=== PATIENT | female | born 1985 | race African-American/Black ===

== ENCOUNTER 2024-12-15 20:39 | Emergency (ER) | payer BC, SELFPAY ==
--- NOTE | ~2024-12-15 | US_ITS ---
EXAMINATION: US OB <= 14 weeks fetus INDICATION: preg, bleeding, r/o ectopic TECHNIQUE: Sonography of the pelvis was performed by transabdominal technique. Patient declined endov aginal examination. COMPARISON: None. RESULT: Exam limited by transabdominal technique and bowel gas. Uterus: 10.5 x 6.3 x 7.0 cm. Anteverted. Intrauterine gestational sac: Possible gestational sac, low in the cervix. Mean Sac Diameter: 1.7 c m, corresponding gestational age 6 week 6 days. Yolk sac: Not visualized. Embryo: Not seen. Right ovary: 4.0 x 3.3 x 3.4 cm. Vascular flow is present. 2.1 cm cyst. Left ovary: 3.0 x 2.3 x 2.1 cm. Vascular flow is present. 3.6 cm ovarian lesion, likely cyst, part ially obscured. Pelvis free fluid: None. IMPRESSION: Limited examination as detailed above. Possible gestational sac low in the cervix. No pole identified. Estimated Gestational Age: 6 weeks, 6 days by mean gestational sac diameter. BELLO by ultrasound 2025. Recommend close clinical and sonographic follow-up. Reviewed, dictated and finalized at location K. IMPRESSION: Limited examination as detailed above. Possible gestational sac low in the cervix. No pole identified. Estimated Gestational Age: 6 weeks, 6 days by mean gestational sac diameter. E DD by ultrasound 08/04/2025. Recommend close clinical and sonographic follow-up.
[2024-12-15 20:44] VITALS: BP 142/80; PULSE 83; RESP 16; TEMP 36.7; O2SAT 100
[2024-12-15 21:59] LABS: Hematocrit 40.5 % (37.0-47.0); Hemoglobin 13.0 g/dL (12.0-15.0); Immature Granulocyte Percent A 0.2 % (0-0.5); Lymphocytes Absolute Auto 2.15 K/mm3 (0.9-3.2); Mean Corpuscular HGB Conc 32.1 g/dl (32-36); Mean Corpuscular Hemoglobin 27.7 pg (26-34); Mean Corpuscular Volume 86.2 fl (80-100); Nucleated Red Blood Cells Absolute Auto 0.000 K/mm3 (0.0-0.012); Nucleated Red Blood Cells Perc 0.0 % (0.0-0.2); Platelet Count Result 282 k/mm3 (150-375); Red Blood Count 4.70 M/mm3 (4.2-5.4); White Blood Count 8.3 K/mm3 (4.5-10.0)
[2024-12-15 22:10] LABS: INR 1.0; Prothrombin Time 13.0 Seconds (11.1-14.7)
[2024-12-15 22:11] LABS: Partial Thromboplastin Time 27.6 Seconds (22.3-36.8)
[2024-12-15 22:14] LABS: Alanine Aminotransferase 20 U/L (6-35); Albumin Level 4.6 g/dL (3.5-5.1); Alkaline Phosphatase 58 U/L (38-126); Anion Gap 10 mmol/L (4-12); Aspartate Amino Transferase 26 U/L (14-36); Bilirubin,Total 0.3 mg/dL (0.2-1.3); Blood Urea Nitrogen 11 mg/dL (7-17); Calcium 9.6 mg/dL (8.4-10.2); Carbon Dioxide 20 mmol/L (22-30); Chloride 104 mmol/L (98-107); Estimated CRCL calculation 130 ml/min; Estimated Glomerular Filt Rate > 60; Glucose 126 mg/dL (65-110); Potassium 3.7 mmol/L (3.4-5.0); Sodium 134 mmol/L (137-145); Total Protein 8.7 g/dL (6.3-8.2)
--- OUTSIDE RECORDS SUMMARY | 2024-12-15 22:22 | XMS_ITS | Clinical Summary ---
Author Organization [facility] al Address [address] [place] [address] Care Team Providers Care Talent Acquisition Operations Manager Name Role Phone Francisca Monsivais NP Primary Care Provider [phone] Allergies No known active allergies Medications famotidine (PEPCID) 20 mg tablet Take 1 tablet (20 mg total) by mouth 2 (two) times a day 60 tablet 4 Active calcium carbonate (TUMS) 500 mg (200 mg elemental calcium) chewable tablet Take 1 tablet/chew tab (500 mg total) by mouth 3 (three) times a day as needed for indigestion or heartburn 60 tablet 4 Active Social History Tobacco Use Types Packs/Day Years Used Date Smoking Tobacco: Never Assessed Personal Safety Answer Date Recorded Have you ever been in or are you currently in a harmful physical or emotional relationship or is someone making you feel afraid or unsafe? 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 Gender Identity Not on file Sexual Orientation Not on file Obstetrics History Last Filed Vital Signs Vital Sign Reading Time Taken Comments Blood Pressure 112/63 11/15/2023 9:30 AM CDT Pulse 63 11/15/2023 9:30 AM CDT Temperature 36.8 C (98.3 F) 11/15/2023 5:16 AM CDT Respiratory Rate 16 11/15/2023 9:30 AM CDT Oxygen Saturation 98% 11/15/2023 9:30 AM CDT Inhaled Oxygen Concentration - - Weight 99.3 kg (219 lb) 11/15/2023 5:16 AM CDT Height 167.6 cm (5' 6) 11/15/2023 5:16 AM CDT Body Mass Index 35.35 11/15/2023 5:16 AM CDT Plan of Treatment Health Maintenance Due Date Last Done Comments Cervical Cancer Screening 1987 Depression Screening 1987 Hepatitis C Screening 1987 DTaP/Tdap/Td Vaccine (5 - Tdap) 1998 02/14/1993, 12/15/1992, 1987, Additional history exists Varicella Vaccines (1 of 2 - 13+ 2-dose series) 2000 Regular Well Visit/Exam 18-64 2005 HPV Vaccines (1 - 3-dose SCDM series) 2014 Influenza Vaccine (#1) 2025 Hepatitis B Screening Completed 02/20/2000 , 04/22/1999, 03/19/1999 Pneumococcal vaccine <65 Aged Out No longer eligible based on patient's age to complete this topic Insurance [employer] OOS [employer] OOS Member Subscriber Plan / Payer (Ef fective 2022-Present) Name:Sherrill Valencia Relation to Subscriber:Self Name:Sherrill Valencia Payer ID:[id number] (NAIC) Type: ALLIANCE Address: [facility] [id number] [place] [id number] Care Teams Talent Acquisition Operations Manager Relationship Specialty Start Date End Date Francisca Monsivais NP [address] [place] [id number] PCP - General Steward/Stewardess Tourist Class 11/15/23
--- OUTSIDE RECORDS SUMMARY | 2024-12-15 22:22 | XMS_ITS | Clinical Summary ---
Author Organization [facility] Address [address] [facility] [place] [address] Care Team Providers Care Fleet Technician Name Role Phone Francisca Monsivais Primary Care Provider [phone] Source Comments [facility],non-owned Affiliates and Associated Physician Practices is amultiple site organization consisting of ambulatory clinics and hospital sitesin [place], [place], [place] and [place]. This disclosure is being madepursuant to the Care Everywhere program and may not contain all information available regarding this patient. Last updated [facility] Allergies No known active allergies Medications * Be aware that medications may not be up to date on this document. Alwaysverify current medications with the patient. Vit-Fe Fumarate-FA ( vitamin) 28-0.8 MG tablet Take 1 (one) tablet by mouth once daily Active metoclopramide (Reglan) 10 MG tablet Take 1 (one) tablet by mouth every 6 hours for 90 days 120 tablet 2 4 Active scopolamine (Transderm-Scop ) 1 MG patchIndication s:Nausea and vomiting during (HCC) Apply 1 (one) patch to skin every 3 days for 90 days 10 patch 2 4 Active Additional Information Patient not taking.Reason: Other, Informant: Patient, Reported on 02/23/2024 ondansetron, disintegrating, (Zofran ODT) 4 MG tablet Take 1 (one) tablet by mouth every 6 hours for 90 days Allow tablet to dissolve on the tongue 120 tablet 2 4 Active multivitamins plus minerals chew tablet Take 1 (one) tablet by mouth daily with food Active ibuprofen (Motrin) 600 MG tablet Take 1 (one) tablet by mouth every 6 hours as needed for Pain 30 tablet Active acetaminophen (Tylenol) 500 MG capsule Take 2 (two) capsules by mouth every 6 hours as needed for Fever or Pain 60 capsule Active docusate sodium (Colace) 100 MG capsule Take 1 (one) capsule by mouth once daily 60 capsule Active Additional Information Patient not taking.Reason: Other, Reported on 07/18/2024 polyethylene glycol 3350 (MiraLax) 17 GM/SCOOP powder Take 17 (seventeen) g by mouth once daily 238 g 1 Active Additional Information Patient not taking.Reason: Other, Reported on 07/18/2024 ferrous sulfate 325 (65 FE) MG tablet Take 1 (one) tablet by mouth once daily 30 tablet 2 Active Active Problems Patient Care Coordination No te Formatting of this note migh t be different from the original. [employer] form completed. Diapers given. 03/22/2024, 04/19/24; 05/25/24, 07/18/24PP Problem Noted Date Diagnosed Date Encounter for induction of labor 06/09/2024 Fall, initial encounter 05/26/2024 Iron deficiency anemia juancarlos luke to inadequate dietary iron intake 05/11/2024 Encounter for supervision of normal first in third trimester 04/05/2024 Nausea and vomiting during 11/23/2023 Immunizations Immunization Administration Dates Next Due MMR 06/11/2024() TDAP (7yrs+) 06/11/2024() Social History Tobacco Use Types Packs/Day Years Used Date Smoking Tobacco: Never Smokeless Tobacco: Never Tobacco Cessation:Counseling Given: Not Answered Alcohol Use Standard Drinks/Week Comments Not Currently 0 (1 standard drink = 0.6 oz pur e alcohol) Overall Financial Resource Strain (CARDIA) Answe r Date Recorded How hard is it for you to pa y for the very basics like food, housing, medical care, and heating? Not very hard 07/18/2024 [facility] - Occupational Stress Questionnaire Answer Date Recorded Do you feel stress - tense, restless, nervous, or anxious, or unable to sleep at night because your mind is troubled all the time - these days? Only a little 07/18/2024 Hunger Vital Sign Answer Date Recorded Within the past 12 months, y ou worried that your food would run out before you got the money to buy more. Never true 07/19/19 25 Within the past 12 months, t he food you bought just didn't last and you didn't have money to get more. Never true 07/18/2024 PRAPARE - Transportation Answer Date Re corded In the past 12 months, has l ack of transportation kept you from medical appointments or from getting medications? No 08/2024 In the past 12 months, has l ack of transportation kept you from meetings, work, or from getting things needed for daily living? No 07/18/2024 Housing Stability Vital Sign Answer Ramon e Recorded In the last 12 months, was t here a time when you were not able to pay the mortgage or rent on time? No 02/23/2024 In the last 12 months, how many places have you lived? 2 02/23/2024 In the last 12 months, was t here a time when you did not have a steady place to sleep or slept in a custodial (including now)? No 02/23/2024 Pelham Depression Scale Answer Date Recorded Pelham Depression Scale Total 2 07/18/2024 The thought of harming myself has occurred to me . Never 07/18/2024 Housing Stability Vital Sign Answer Ramon e Recorded In the last 12 months, was t here a time when you were not able to pay the mortgage or rent on time? No 07/18/2024 In the past 12 months, how m any times have you moved where you were living? 1 07/18/2024 At any time in the past 12 m [facility], were you homeless or living in a custodial (including now)? No 07/18/2024 Comments No Sex and Gender Information Value Date Recorded Sex Assigned at Not on file Legal Sex Female 12:51 PM CDT Gender Identity Not on file Sexual Orientation Not on file Last Filed Vital Signs Vital Sign Reading Time Taken Comments Blood Pressure 136/87 07/18/2024 9:46 AM INTELLIGENCE OFFICER BASIC Pulse 74 07/18/2024 9:46 AM INTELLIGENCE OFFICER BASIC Temperature 36.7 C (98 F) 06/11/2024 8:30 AM INTELLIGENCE OFFICER BASIC Respiratory Rate 18 06/11/2024 8:30 AM INTELLIGENCE OFFICER BASIC Oxygen Saturation 100% 06/11/2024 8:30 AM INTELLIGENCE OFFICER BASIC Inhaled Oxygen Concentration - - Weight 99.3 kg (219 lb) 07/18/2024 9:46 AM INTELLIGENCE OFFICER BASIC Height 167.6 cm (5' 5.98) 06/10/2024 12:13 AM C Body Mass Index 35.36 06/10/2024 12:13 AM INTELLIGENCE OFFICER BASIC Plan of Treatment Upcoming Encounters Date Type Department Care Team (Late st Contact Info) Description 01/16/2025 10:30 AM CDT Appointment [facility]/ EVALUATION UNIT [address] [facility] [address] [facility] [place] [address] Health Maintenance Due Date Last Done Comments DTAP/TDAP/TD VACCINES (1 - Tdap) 2006 HEPATITIS B VACCINE (1 of 3 - 19+ 3-dose series) 2006 PAP SMEAR 2008 HPV VACCINE (1 - 3-dose SCDM series) 2014 COVID-19 VACCINE (1 - 2023-2 5 season) 2024 INFLUENZA VACCINE (#1) 2025 ZOSTER VACCINE (1 of 2) 2037 HEPATITIS C SCREENING Completed 11/23/2023 HIV SCREENING Completed 04/05/2024 DEPRESSION SCREENING Completed 07/18/2024 HIB VACCINE Aged Out No longer eligi ble based on patient's age to complete this topic MENINGOCOCCAL (Group B) VACC INE SHARED DECISION-MAKING Aged Out No longer eligibl e based on patient's age to complete this topic MENINGOCOCCAL GROUPS A/C/Y/W VACCINE Aged Out No longer eligible b ased on patient's age to complete this topic PNEUMOCOCCAL VACCINE Aged Out No long er eligible based on patient's age to complete this topic Procedures Procedure Name Priority Date/Time Associated Diagnosis Comments HIV-1 HIV-2 ANTIBODY + HIV P24 AG PANEL Routine 04/05/2024 10:46 AM INTELLIGENCE OFFICER BASIC Encounter for supervision of normal first in third trimester HEPATITIS SCREEN ACUTE STAT 11/23/2023 4:09 PM CDT Nausea and vomiting during from Last 3 Months or Most Recently Relevant to Health Maintenance Results * HIV-1 HIV-2 ANTIBODY + HIV P24 AG PANEL (04/05/2024 10:46 AM INTELLIGENCE OFFICER BASIC) Pathologist [facility] HIV1/2 Ab + P24 Ag Non Reactive Non Reactive 04/05/2024 1:18 PM INTELLIGENCE OFFICER BASIC [facility] Blood BLOOD SPECIMEN / Unknown Venipuncture / Unknown 04/05/2024 10:46 AM INTELLIGENCE OFFICER BASIC 04/05/2024 12:02 PM INTELLIGENCE OFFICER BASIC Narrative [facility] - 04/05/2024 1:18 PM INTELLIGENCE OFFICER BASIC No Laboratory evidence of HIV infection. us Shira Andres APRN-[facility] - CHEMISTRY ORDE RABPEPPER Final Result Performing Organization Address [facility] Co de Phone Number [facility] [address] [place], [place] [id number] * HEPATITIS SCREEN ACUTE (11/23/2023 4:09 PM CDT) Pathologist [facility] HAV Antibody IgM Non Reactive Non Reactive 11/23/2023 5:02 PM CDT [facility] HBsAg Non Reactive Non Reactive 11/23/2023 5:02 PM CDT [facility] HBc Antibody IgM Non Reactive Non Reactive 11/23/2023 5:02 PM CDT [facility] HCV Antibody Screen Non Reactive Non Reactive 11/23/2023 5:02 PM CDT [facility] Blood BLOOD SPECIMEN / Unknown Venipuncture / Unknown 11/23/2023 4:09 PM CDT 11/23/2023 4:17 PM CDT Narrative [facility] - 11/23/2023 5:02 PM CDT Non Reactive - Antibodies to Hepatitis C virus (HCV) were not detected, result does not exclude early acute HCV infection. us Jordana Joe APRN-[facility] - CHEMISTRY ORDER SHEA Final Result Performing Organization Address [facility] Co de Phone Number [facility] [address] [place] [phone] from Last 3 Months or Most Recently Relevant to Health Maintenance Insurance [id number][NOTE 3] Advance Directives * Full Code (Latest Code Status on File) Date Activated Date Inactivated Comments 06/09/2024 2:53 PM 06/11/2024 2:47 PM * Full Code Date Activated Date Inactivated Comments 11/23/2023 3:19 PM 11/24/2023 5:33 PM * Full Code Date Activated Date Inactivated Comments 11/23/2023 1:02 PM 11/23/2023 3:19 PM Care Teams Fleet Technician Relationship Specialty Start Date End Date Francisca Monsivais [address] [place] [address] PCP - General 11/23/23
--- OUTSIDE RECORDS SUMMARY | 2024-12-15 22:22 | XMS_ITS | Referral Summary ---
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
[2024-12-15 22:28] LABS: Beta HCG Quantitative 6839.60 mIU/ML
--- NOTE | 2024-12-15 23:39 | ED.PREGNANCY ---
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 Patient is in approximately 9-10 weeks gestation. Reports LNMP was October 07, 2024. Did have a positive test last week. She has not seen her OBGYN yet for this . Typically follows with a provider in [place], [place]. Reports she began having vaginal bleeding tonight. Reports it was mild at 1st, did become slightly heavier. She reports some clots. Denies significant abdominal cramping. Denies nausea, vomiting, fevers. Denies dizziness, lightheadedness. Review of Systems Review of Systems: All systems reviewed & are unremarkable except as noted in HPI. All systems reviewed & are unremarkable except as noted in HPI and below Exam Narrative: GENERAL: Well appearing, well-nourished, non-toxic, in no acute distress. HEAD: Normocephalic, atraumatic. RESPIRATORY: Airway patent, respirations nonlabored. CARDIOVASCULAR: Regular rate and rhythm without murmurs, rubs, or gallops. MUSCULOSKELETAL: Moves all extremities. No gross deformities. SKIN: Warm, dry, normal color. NEURO: A&O X3. Speech clear. No ataxic movements. PSYCHIATRIC: Appropriate mood and affect. Normal interaction. Course Vital Signs Vital signs: Vital Signs Temperature 98.1 F 12/15/24 20:44 Pulse Rate 83 12/15/24 20:44 Respiratory Rate 16 12/15/24 20:44 Blood Pressure 142/80 H 12/15/24 20:44 Pulse Oximetry 100 12/15/24 20:44 Oxygen Delivery Room Air 12/15/24 20:44 Temperature 98.1 F 12/15/24 20:44 Pulse Rate 83 12/15/24 20:44 Respiratory Rate 16 12/15/24 20:44 Blood Pressure 142/80 H 12/15/24 20:44 Pulse Oximetry 100 12/15/24 20:44 Oxygen Delivery Room Air 12/15/24 20:44 MDM - OB/Uterine Contractions MDM Narrative Medical decision making narrative: Patient presented to ED with vaginal bleeding, currently 9-10 weeks gestation. . Vital signs are stable upon arrival. Patient is in no acute distress. Laboratory studies obtained without leukocytosis or anemia. Beta hCG today is just under 7000. No records to compare to. Blood type is B positive, no indication for RhoGAM. ultrasound was obtained transabdominally. Patient declined transvaginal US exam. This is showing possible gestational sac low in the cervix without evidence of pole. Measuring approximately 6 weeks 6 days. Discussed lab and imaging findings with patient. Unfortunately findings appear consistent with spontaneous miscarriage. Discussed this with patient. She politely declined pelvic exam in the ED. discussed expected management, advised to continue to monitor bleeding closely. Discussed having repeat hormone level obtain on Wednesday. Will place outpatient order for this. Advised patient to contact OBGYN 1st thing Wednesday morning. I did discuss case with Dr. Bone, OBGYN on-call, agrees with plan. Patient given very strict return precautions, discussed worrisome signs of bleeding. Patient voiced understanding. Feels comfortable going home. Discharged in stable condition. Medical Records Attestation: I reviewed the patient's medical records. Lab Data Attestation: I reviewed the patient's lab results. 12/15/24 21:51 12/15/24 21:51 Labs: Lab Results 12/15/24 Range/Units 21:51 WBC 8.3 (4.5-10.0) K/mm3 RBC 4.70 (4.2-5.4) M/mm3 Hgb 13.0 (12.0-15.0) g/dL Hct 40.5 (37.0-47.0) % MCV 86.2 (80-100) fl MCH 27.7 (26-34) pg MCHC 32.1 (32-36) g/dl RDW 13.8 (11.5-14.5) % Plt Count 282 (150-375) k/mm3 MPV 11.0 H (7.4-10.4) fl Immature Gran % (Auto) 0.2 (0-0.5) % Neut % (Auto) 65.9 (45.5-73.1) % Lymph % (Auto) 25.9 (18.3-44.2) % [place] % (Auto) 5.5 (2.6-8.5) % Eos % (Auto) 1.8 (0-4.4) % Baso % (Auto) 0.7 (0.2-1.2) % Lymph # (Auto) 2.15 (0.9-3.2) K/mm3 [place] # (Auto) 0.5 (0.1-0.6) K/mm3 Eos # (Auto) 0.2 (0-0.3) K/mm3 Baso # (Auto) 0.1 (0.0-0.1) K/mm3 Abs Immat Gran (auto) 0.02 (0.00-0.031) K/mm3 Absolute Neuts (auto) 5.5 (1.3-6.7) K/mm3 Absolute Nucleated RBC 0.000 (0.0-0.012) K/mm3 Nucleated RBC % 0.0 (0.0-0.2) % PT 13.0 (11.1-14.7) Seconds INR 1.0 APTT 27.6 (22.3-36.8) Seconds Sodium 134 L (137-145) mmol/L Potassium 3.7 (3.4-5.0) mmol/L Chloride 104 (98-107) mmol/L Carbon Dioxide 20 L (22-30) mmol/L Anion Gap 10 (4-12) mmol/L BUN 11 (7-17) mg/dL Creatinine 0.61 L (0.7-1.0) mg/dL Estim Creat Clear Calc 130 ml/min Estimated GFR > 60 (59 - ) Glucose 126 H (65-110) mg/dL Calcium 9.6 (8.4-10.2) mg/dL Total Bilirubin 0.3 (0.2-1.3) mg/dL AST 26 (14-36) U/L ALT 20 (6-35) U/L Alkaline Phosphatase 58 (38-126) U/L Total Protein 8.7 H (6.3-8.2) g/dL Albumin 4.6 (3.5-5.1) g/dL Beta HCG, Quant 6839.60 mIU/ML Blood Type B Positive Antibody Screen Negative Screen Not Reportable Baby's Blood Type Not Reportable Baby's CANDI Not Reportable Doses of RhIg Required 0 Imaging Data Attestation: I personally reviewed and interpreted this imaging study as follows: Radiologist's impression: ITS Impressions Ultrasound 08/01/25 23:01 IMPRESSION: Limited examination as detailed above. Possible gestational sac low in the cervix. No pole identified. Estimated Gestational Age: 6 weeks, 6 days by mean gestational sac diameter. BELLO by ultrasound 08/04/2025. Recommend close clinical and sonographic follow-up. Discharge Plan Discharge Clinical Impression: Spontaneous miscarriage Patient Disposition: Home Condition: Stable Instructions: Antibiotic Form, Miscarriage (ED), Abnormal (Dysfunctional) Uterine Bleeding (ED) Additional Instructions: Contact OBGYN office on Wednesday to make follow-up appointment for further evaluation. You may follow-up with our OBGYN here if needed. Obtain repeat beta-hCG on Wednesday. Take lab order sheet with you to outpatient lab. Continue to monitor bleeding. You may use Tylenol/ibuprofen if needed for abdominal cramping. Return to the ED if you experience worsening or severe bleeding (saturating through a pad per hour for at least 3 consecutive hours), severe pain or cramping, feeling dizzy or lightheaded, passing out, unable to keep down food or drink, or any other symptoms of concern. Patient Language: Malay Other Ambulatory Orders: Beta HCG Quantitative (Routine) Timeframe: 20241218 Location: Determined by Patient Ordered By: Joanne Graves Follow-up/Referrals: Hayley Bone MD [Physician] - (OBGYN) UNKNOWN,DOCTOR [Primary Care Provider] - Time of Disposition: 23:53
== END 2024-12-16 00:08 | disposition home or self-care (01) ==
PROVIDERS: Emergency Provider Physician Assistant
DX: O03.9 Complete or unspecified spontaneous abortion without complication (principal)
CPT/HCPCS: 36415; 76801; 80053; 84702; 85025; 85461; 85610; 85730; 86850; 86900; 86901; 99284

== ENCOUNTER 2024-12-18 11:39 | Outpatient (CLI) | payer BC, SELFPAY ==
--- OUTSIDE RECORDS SUMMARY | 2024-12-18 12:02 | XMS_ITS | Referral Summary ---
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
--- OUTSIDE RECORDS SUMMARY | 2024-12-18 12:02 | XMS_ITS | Clinical Summary ---
Author Organization [facility] Address [address] [place] [address] Care Team Providers Care Learning Disabilities Teacher Name Role Phone Francisca Monsivais Primary Care Provider [phone] [facility],non-owned Affiliates and Associated Physician Practices is amultiple site organization consisting of ambulatory clinics and hospital sitesin [place], [place], [place] and [place]. This disclosure is being madepursuant to the Care Everywhere program and may not contain all information available regarding this patient. Last updated 18.[employer] [facility] Allergies No known active allergies Medications * [...] migh t be different from the original. [employer] form completed. Diapers given. 03/22/2024, [...] care, and heating? Not very hard 07/18/2024 [facility] - Occupational Stress Questionnaire Answer Date Recorded [...] place to sleep or slept in a usp (including now)? No 02/23/2024 [place] Depression Scale Answer Date Recorded [place] Depression Scale Total 2 07/18/2024 The thought [...] any time in the past 12 m [facility], were you homeless or living in a usp (including now)? No 07/18/2024 Comments No Sex and Gender Information Value Date Recorded Sex Assigned at Not on file Legal Sex Female 12:51 PM CDT Gender Identity Not on file Sexual Orientation Not on file Last Filed Vital Signs Vital Sign Reading Time Taken Comments Blood Pressure 136/87 07/18/2024 9:46 AM DATA INTEGRATION ANALYST Pulse 74 07/18/2024 9:46 AM DATA INTEGRATION ANALYST Temperature 36.7 C (98 F) 06/11/2024 8:30 AM DATA INTEGRATION ANALYST Respiratory Rate 18 06/11/2024 8:30 AM DATA INTEGRATION ANALYST Oxygen Saturation 100% 06/11/2024 8:30 AM DATA INTEGRATION ANALYST Inhaled Oxygen Concentration - - Weight 99.3 kg (219 lb) 07/18/2024 9:46 AM DATA INTEGRATION ANALYST Height 167.6 cm (5' 5.98) 06/10/2024 12:13 AM C Body Mass Index 35.36 06/10/2024 12:13 AM DATA INTEGRATION ANALYST Plan of Treatment Upcoming Encounters Date Type Department Care Team (Late st Contact Info) Description 01/16/2025 10:30 AM CDT Appointment [facility]/ EVALUATION UNIT [address] [place] [address] Health Maintenance Due Date Last Done Comments [...] P24 AG PANEL Routine 04/05/2024 10:46 AM DATA INTEGRATION ANALYST Encounter for supervision of normal first in third trimester HEPATITIS SCREEN ACUTE STAT 11/23/2023 4:09 PM CDT Nausea and vomiting during from Last 3 Months or Most Recently Relevant to Health Maintenance Results * HIV-1 HIV-2 ANTIBODY + HIV P24 AG PANEL (04/05/2024 10:46 AM DATA INTEGRATION ANALYST) Pathologist [facility] [place] HIV1/2 Ab + P24 Ag Non Reactive Non Reactive 04/05/2024 1:18 PM DATA INTEGRATION ANALYST [facility] Blood BLOOD SPECIMEN / Unknown Venipuncture / Unknown 04/05/2024 10:46 AM DATA INTEGRATION ANALYST 04/05/2024 12:02 PM DATA INTEGRATION ANALYST Narrative [facility] - 04/05/2024 1:18 PM DATA INTEGRATION ANALYST No Laboratory evidence of HIV infection. us Shira Andres APRN-[facility] - CHEMISTRY ORDE RABPEPPER Final Result Performing Organization Address [facility] Co de Phone Number [facility] [address] [place], [place] [id number] * HEPATITIS SCREEN ACUTE (11/23/2023 4:09 PM CDT) Pathologist [facility] [place] HAV Antibody IgM Non Reactive Non Reactive 11/23/2023 5:02 PM CDT [facility] HBsAg Non Reactive Non Reactive 11/23/2023 5:02 PM CDT [facility] HBc Antibody IgM Non Reactive Non Reactive 11/23/2023 5:02 PM CDT [facility] HCV Antibody Screen Non Reactive Non Reactive 11/23/2023 5:02 PM CDT [facility] Blood BLOOD SPECIMEN / Unknown Venipuncture / Unknown 11/23/2023 4:09 PM CDT 11/23/2023 4:17 PM CDT Narrative [facility] - 11/23/2023 5:02 PM CDT Non Reactive - Antibodies to Hepatitis C virus (HCV) were not detected, result does not exclude early acute HCV infection. us Jordana Joe APRN-[facility] - CHEMISTRY ORDER SHEA Final Result Performing Organization Address [facility] Co de Phone Number [facility] [address] [place] [phone] from Last 3 Months or Most Recently Relevant to Health Maintenance Insurance [facility] Advance Directives * Full Code (Latest Code Status on File) Date Activated Date Inactivated Comments 06/09/2024 2:53 PM 06/11/2024 2:47 PM * Full Code Date Activated Date Inactivated Comments 11/23/2023 3:19 PM 11/24/2023 5:33 PM * Full Code Date Activated Date Inactivated Comments 11/23/2023 1:02 PM 11/23/2023 3:19 PM Care Teams Learning Disabilities Teacher Relationship Specialty Start Date End Date Francisca Monsivais [address] [place] [address] PCP - General 11/23/23
--- OUTSIDE RECORDS SUMMARY | 2024-12-18 12:02 | XMS_ITS | Clinical Summary ---
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
[2024-12-18 13:12] LABS: Beta HCG Quantitative 518.04 mIU/ML
== END 2024-12-18 11:40 | disposition home or self-care (01) ==
LOC: ANHLAB 11:43
PROVIDERS: Visit Provider Physician Assistant
DX: O03.9 Complete or unspecified spontaneous abortion without complication (principal); Z3A.00 Weeks of gestation of pregnancy not specified
CPT/HCPCS: 36415; 84702

== ENCOUNTER 2025-02-19 07:05 | Observation (INO) | payer BC, SELFPAY ==
--- NOTE | ~2025-02-19 | US_ITS ---
EXAMINATION: US right upper quadrant DATE: 02/19/2025 10:46 INDICATION: Right upper quadrant abdominal pain TECHNIQUE: Multiple grayscale and Doppler ultrasound images of the abdomen were obtained. COMPARISON: None FINDINGS: The pancreatic head and body are normal in appearance. The pancreatic tail is not visualized. Liver has normal echogenicity and contour, with a smooth surface. 1.5 cm anechoic cyst in the right hepatic lobe.. No intrahepatic biliary duct dilation suspected. Portal venous flow was seen in the hepatopetal, normal direction and has normal Doppler waveform. The visualized proximal to mid inferior vena cava is normal. There are few echogenic and shadowing gallstones in the gallbladder. The gallbladder is otherwise normal in appearance. The common bile duct measures 3-4 mm, which is normal. Sonographic Cervantes sign was reported as negative by the customer service agent. IMPRESSION: 1. Cholelithiasis with no findings of acute cholecystitis and no intra or extra hepatic biliary ductal dilation. Reviewed, dictated and finalized at location A.
[2025-02-19 07:08] VITALS: BP 131/81; PULSE 70; RESP 18; TEMP 36.7; O2SAT 99
--- OUTSIDE RECORDS SUMMARY | 2025-02-19 07:08 | XMS_ITS | Clinical Summary ---
Author Organization [facility] Address [address] [place] [address] Care Team Providers Care Director Of Marketing Name Role Phone Francisca Monsivais Primary Care Provider [phone] Source Comments [facility],non-owned Affiliates and Associated Physician Practices is amultiple site organization consisting of ambulatory clinics and hospital sitesin [place], [place], [place] and [place]. This disclosure is being madepursuant to the Care Everywhere program and may not contain all information available regarding this patient. Last updated 18.[employer] [facility] Allergies No known active allergies Medications * [...] migh t be different from the original. [employer] form completed. Diapers given. 03/22/2024, [...] care, and heating? Not very hard 07/18/2024 [facility] - Occupational Stress Questionnaire Answer [...] place to sleep or slept in a longterm (including now)? No 02/23/2024 [place] Depression Scale Answer Date Recorded Onset Depression Scale Total 2 07/18/2024 The thought [...] time in the past 12 m [facility], were you homeless or living in a longterm (including now)? No 07/18/2024 Comments No Sex and Gender Information Value Date Recorded Sex Assigned at Not on file Legal Sex Female 12:51 PM CDT Gender Identity Not on file Sexual Orientation Not on file Last Filed Vital Signs Vital Sign Reading Time Taken Comments Blood Pressure 136/87 07/18/2024 9:46 AM GENERAL MANAGER FARM Pulse 74 07/18/2024 9:46 AM GENERAL MANAGER FARM Temperature 36.7 C (98 F) 06/11/2024 8:30 AM GENERAL MANAGER FARM Respiratory Rate 18 06/11/2024 8:30 AM GENERAL MANAGER FARM Oxygen Saturation 100% 06/11/2024 8:30 AM GENERAL MANAGER FARM Inhaled Oxygen Concentration - - Weight 99.3 kg (219 lb) 07/18/2024 9:46 AM GENERAL MANAGER FARM Height 167.6 cm (5' 5.98) 06/10/2024 12:[address] Body Mass Index 35.36 06/10/2024 12:13 AM GENERAL MANAGER FARM Plan of Treatment Health Maintenance Due Date Last Done Comments DTAP/TDAP/TD VACCINES (1 - Tdap) 2006 HEPATITIS B VACCINE (1 of 3 - 19+ 3-dose series) 2006 PAP SMEAR 2008 HPV VACCINE (1 - 3-dose SCDM series) 2014 COVID-19 VACCINE (1 - 2023-2 5 season) 2025 INFLUENZA VACCINE (#1) 2025 ZOSTER VACCINE (1 [...] P24 AG PANEL Routine 04/05/2024 10:46 AM GENERAL MANAGER FARM Encounter for supervision of normal first in third trimester HEPATITIS SCREEN ACUTE STAT 11/23/2023 4:09 PM CDT Nausea and vomiting during from Last 3 Months or Most Recently Relevant to Health Maintenance Results * HIV-1 HIV-2 ANTIBODY + HIV P24 AG PANEL (04/05/2024 10:46 AM GENERAL MANAGER FARM) HIV1/2 Ab + P24 Ag Non Reactive Non Reactive 04/05/2024 1:18 PM GENERAL MANAGER FARM [facility] Blood BLOOD SPECIMEN / Unknown Venipuncture / Unknown 04/05/2024 10:46 AM GENERAL MANAGER FARM 04/05/2024 12:02 PM GENERAL MANAGER FARM Narrative [facility] - 04/05/2024 1:18 PM GENERAL MANAGER FARM No Laboratory evidence of HIV infection. Shira Andres APRN-[facility] - CHEMISTRY ORDE RAMBO Final Result Performing Organization Address [facility]/ZIP Co de Phone Number [facility] [address] [place], [place] [phone] * HEPATITIS SCREEN ACUTE (11/23/2023 4:09 PM CDT) Pathologist [facility] HAV Antibody IgM Non Reactive Non Reactive 11/23/2023 5:02 PM CDT [facility] HBsAg Non Reactive Non Reactive 11/23/2023 5:02 PM CDT [facility] HBc Antibody IgM Non Reactive Non Reactive 11/23/2023 5:02 PM CDT [facility] HCV Antibody Screen Non Reactive Non Reactive 11/23/2023 5:02 PM CDT [facility] Blood BLOOD SPECIMEN / Unknown Venipuncture / Unknown 11/23/2023 4:09 PM CDT 11/23/2023 4:17 PM CDT Narrative [facility] - 11/23/2023 5:02 PM CDT Non Reactive - Antibodies to Hepatitis C virus (HCV) were not detected, result does not exclude early acute HCV infection. Jordana Joe APRN-[facility] - CHEMISTRY ORDER SHEA Final Result Performing Organization Address [facility] Co de Phone Number [facility] [address] [place] [address] from Last 3 Months or Most Recently Relevant to Health Maintenance Insurance [employer] Advance Directives * Full Code (Latest Code Status on File) Date Activated Date Inactivated Comments 06/09/2024 2:53 PM 06/11/2024 2:47 PM * Full Code Date Activated Date Inactivated Comments 11/23/2023 3:19 PM 11/24/2023 5:33 PM * Full Code Date Activated Date Inactivated Comments 11/23/2023 1:02 PM 11/23/2023 3:19 PM Care Teams Director Of Marketing Relationship Specialty Start Date End Date Francisca Monsivais [address] [place] [phone] PCP - General 11/23/23
--- OUTSIDE RECORDS SUMMARY | 2025-02-19 07:08 | XMS_ITS | Clinical Summary ---
Author Organization 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
[2025-02-19 07:46] LABS: BEDSIDEPREGUCG Negative (Negative)
[2025-02-19 07:50] LABS: Hematocrit 39.5 % (37.0-47.0); Hemoglobin 12.7 g/dL (12.0-15.0); Immature Granulocyte Percent A 0.0 % (0-0.5); Lymphocytes Absolute Auto 0.97 K/mm3 (0.9-3.2); Mean Corpuscular HGB Conc 32.2 g/dl (32-36); Mean Corpuscular Hemoglobin 27.1 pg (26-34); Mean Corpuscular Volume 84.2 fl (80-100); Nucleated Red Blood Cells Absolute Auto 0.000 K/mm3 (0.0-0.012); Nucleated Red Blood Cells Perc 0.0 % (0.0-0.2); Platelet Count Result 262 k/mm3 (150-375); Red Blood Count 4.69 M/mm3 (4.2-5.4); White Blood Count 4.4 K/mm3 (4.5-10.0)
[2025-02-19 07:57] LABS: Add Urine Microscopic? YES; Appearance Urine Cloudy (Clear); Glucose Urine UA Negative (Negative); Leukocyte Esterase Ur Trace LEU/UL (Negative); Nitrate Urine Negative (Negative); Non Pathogenic Casts 0-2; Specific Grav Ur 1.012 (1.001-1.035)
[2025-02-19 08:11] LABS: Alanine Aminotransferase 450 U/L (6-35); Albumin Level 4.2 g/dL (3.5-5.1); Alkaline Phosphatase 101 U/L (38-126); Anion Gap 8 mmol/L (4-12); Bilirubin,Total 1.0 mg/dL (0.2-1.3); Blood Urea Nitrogen 6 mg/dL (7-17); Calcium 8.9 mg/dL (8.4-10.2); Carbon Dioxide 25 mmol/L (22-30); Chloride 104 mmol/L (98-107); Estimated CRCL calculation 120 ml/min; Estimated Glomerular Filt Rate > 60; Glucose 105 mg/dL (65-110); Lipase 109 U/L (23-300); Potassium 3.7 mmol/L (3.4-5.0); Sodium 137 mmol/L (137-145); Total Protein 8.0 g/dL (6.3-8.2)
[2025-02-19 08:24] LABS: Aspartate Amino Transferase 910 U/L (14-36)
--- OUTSIDE RECORDS SUMMARY | 2025-02-19 09:22 | XMS_ITS | Clinical Summary ---
Author Organization [facility] Address [address] [place] [address] Care Team Providers Care Rn X Ray Name Role Phone Francisca Monsivais Primary Care Provider [phone] Source Comments [facility],non-owned Affiliates and Associated Physician Practices is amultiple site organization consisting of ambulatory clinics and hospital sitesin [place], [place], [place] and [place]. This disclosure is being madepursuant to the Care Everywhere program and may not contain all information available regarding this patient. Last updated 18.[employer] [facility] Allergies No known active allergies Medications * [...] migh t be different from the original. [employer] form completed. Diapers given. 03/22/2024, [...] care, and heating? Not very hard 07/18/2024 [facility] - Occupational Stress Questionnaire Answer Date [...] place to sleep or slept in a halfway (including now)? No 02/23/2024 [place] Depression Scale Answer Date Recorded [place] Depression Scale Total 2 07/18/2024 The thought [...] any time in the past 12 m [facility], were you homeless or living in a halfway (including now)? No 07/18/2024 Comments No Sex and Gender Information Value Date Recorded Sex Assigned at Not on file Legal Sex Female 12:51 PM CDT Gender Identity Not on file Sexual Orientation Not on file Last Filed Vital Signs Vital Sign Reading Time Taken Comments Blood Pressure 136/87 07/18/2024 9:46 AM JUDGE CLERK Pulse 74 07/18/2024 9:46 AM JUDGE CLERK Temperature 36.7 C (98 F) 06/11/2024 8:30 AM JUDGE CLERK Respiratory Rate 18 06/11/2024 8:30 AM JUDGE CLERK Oxygen Saturation 100% 06/11/2024 8:30 AM JUDGE CLERK Inhaled Oxygen Concentration - - Weight 99.3 kg (219 lb) 07/18/2024 9:46 AM JUDGE CLERK Height 167.6 cm (5' 5.98) 06/10/2024 12:[address] Body Mass Index 35.36 06/10/2024 12:13 AM JUDGE CLERK Plan of Treatment Health Maintenance Due Date [...] P24 AG PANEL Routine 04/05/2024 10:46 AM JUDGE CLERK Encounter for supervision of normal first in third trimester HEPATITIS SCREEN ACUTE STAT 11/23/2023 4:09 PM CDT Nausea and vomiting during from Last 3 Months or Most Recently Relevant to Health Maintenance Results * HIV-1 HIV-2 ANTIBODY + HIV P24 AG PANEL (04/05/2024 10:46 AM JUDGE CLERK) HIV1/2 Ab + P24 Ag Non Reactive Non Reactive 04/05/2024 1:18 PM JUDGE CLERK [facility] Blood BLOOD SPECIMEN / Unknown Venipuncture / Unknown 04/05/2024 10:46 AM JUDGE CLERK 04/05/2024 12:02 PM JUDGE CLERK Narrative [facility] - 04/05/2024 1:18 PM JUDGE CLERK No Laboratory evidence of HIV infection. Shira Andres APRN-[facility] - CHEMISTRY ORDE RAMBO Final Result Performing Organization Address [facility]/ZIP Co de Phone Number [facility] [address] [place], [place] [phone] * HEPATITIS SCREEN ACUTE (11/23/2023 4:09 PM CDT) Pathologist [facility] HAV Antibody IgM Non Reactive Non Reactive 11/23/2023 5:02 PM CDT [facility] HBsAg Non Reactive Non Reactive 11/23/2023 5:02 PM CDT [facility] HBc Antibody IgM Non Reactive Non Reactive 11/23/2023 5:02 PM CDT [facility] HCV Antibody Screen Non Reactive Non Reactive 11/23/2023 5:02 PM CDT [facility] Blood BLOOD SPECIMEN / Unknown Venipuncture / Unknown 11/23/2023 4:09 PM CDT 11/23/2023 4:17 PM CDT Narrative [facility] - 11/23/2023 5:02 PM CDT Non Reactive - Antibodies to Hepatitis C virus (HCV) were not detected, result does not exclude early acute HCV infection. Jordana Joe APRN-[facility] - CHEMISTRY ORDER SHEA Final Result Performing Organization Address [facility] Co de Phone Number [facility] [address] [place] [address] from Last 3 Months or Most Recently [...] 1:02 PM 11/23/2023 3:19 PM Care Teams Rn X Ray Relationship Specialty Start Date End Date Francisca Monsivais [address] [place] [phone] PCP - General 11/23/23
--- OUTSIDE RECORDS SUMMARY | 2025-02-19 09:22 | XMS_ITS | Clinical Summary ---
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
[2025-02-19 11:30] VITALS: BP 125/72; PULSE 80; RESP 20; O2SAT 98
--- NOTE | 2025-02-19 11:39 | ED_ITS ---
HPI - Abdominal Pain General Chief Complaint: Abdominal Pain Stated Complaint: abd pain wrapping to back Time Seen by Provider: 02/19/25 08:09 History of Present Illness HPI narrative: Patient is a 39-year-old female who presents ER with colicky abdominal pain. Ongoing for almost a year. It's located in her epigastrium and right side and radiates around to her back. Worse after eating and she thinks it is typically caused by sugary foods. No fevers or chills or sweats. Will occasionally get nausea vomiting. No urinary symptoms. Related Data Home Medications ?Medication ?Instructions ?Recorded ?Confirmed ?Last Taken ?Type No Home Medications 02/19/25 02/19/25 U nknown History Allergies Allergy/AdvReac Type Severity Reaction Status Date / Time No Known Allergies Allergy Verified 02/19/25 07:06 Review of Systems 2 Review of Systems: All systems reviewed & are unremarkable except as noted in HPI and below Constitutional: Constitutional: Reports no additional constitutional complaints ENT: Reports system reviewed and no additional complaints, except as documented Cardiovascular: Cardiovascular: Reports no additional cardiovascular complaints Respiratory: Respiratory: Reports no additional respiratory complaints Gastrointestinal: Gastrointestinal: Reports no additional gastrointestinal complaints Genitourinary: Genitourinary: Reports no additional female genitourinary complaints PMFSH Past Medical History Medical History Healthy female adult Surgical History Surgical History No history of previous surgery Social History Social History Smoking status: Never smoker Substance use: never Lack of Transportation: No Lack of Food: Never True Current Housing: I Have Housing Concerned About Future Housing: No Difficulty Paying Gas/Electric Bills: No Difficulty Paying for Meds: No Currently Unemployed: No Education: High School Diploma/GED Difficulty w/ Childcare or Family Care: No Spiritual care concerns: No Exam 2 Narrative: GENERAL: Well-appearing, well-nourished, and in no acute distress. HEAD: Normocephalic, atraumatic. ENT: Mucous membranes moist. CHEST: Clear to auscultation. No respiratory distress. HEART: Regular rate and rhythm. Normal peripheral pulses. ABDOMEN: Soft, mild epigastric and right upper quadrant tenderness without guarding, nondistended. EXTREMITIES: Normal range of motion. No edema. SKIN: Warm, dry, no rash. NEURO: Alert and oriented x3. PSYCH: Normal mood and affect. Course Course Emergency Course: 1227: Spoke with Dr. Bullock, recommends admit/obs with mrcp. May need surgical consult. No abx at this time. Patient aware of diagnosis and tx plan. Vital Signs Vital signs: Vital Signs Temperature 98.1 F 02/19/25 07:08 Pulse Rate 70 02/19/25 07:08 Respiratory Rate 18 02/19/25 07:08 Blood Pressure 131/81 02/19/25 07:08 Pulse Oximetry 99 02/19/25 07:08 Temperature 98.5 F 02/19/25 14:08 Pulse Rate 49 L 02/19/25 14:08 Respiratory Rate 16 02/19/25 14:08 Blood Pressure 125/75 02/19/25 14:08 Pulse Oximetry 98 02/19/25 14:08 MDM - Abdominal Pain Lab Data 02/19/25 07:42 02/19/25 07:42 Labs: Lab Results 02/19/25 02/19/25 Range/Units 07:42 07:43 WBC 4.4 L (4.5-10.0) K/mm3 RBC 4.69 (4.2-5.4) M/mm3 Hgb 12.7 (12.0-15.0) g/dL Hct 39.5 (37.0-47.0) % MCV 84.2 (80-100) fl MCH 27.1 (26-34) pg MCHC 32.2 (32-36) g/dl RDW 13.2 (11.5-14.5) % Plt Count 262 (150-375) k/mm3 MPV 10.9 H (7.4-10.4) fl Immature Gran % (Auto) 0.0 (0-0.5) % Neut % (Auto) 69.5 (45.5-73.1) % Lymph % (Auto) 22.2 (18.3-44.2) % Quay % (Auto) 6.9 (2.6-8.5) % Eos % (Auto) 0.5 (0-4.4) % Baso % (Auto) 0.9 (0.2-1.2) % Lymph # (Auto) 0.97 (0.9-3.2) K/mm3 Quay # (Auto) 0.3 (0.1-0.6) K/mm3 Eos # (Auto) 0.0 (0-0.3) K/mm3 Baso # (Auto) 0.0 (0.0-0.1) K/mm3 Abs Immat Gran (auto) 0.00 (0.00-0.031) K/mm3 Absolute Neuts (auto) 3.0 (1.3-6.7) K/mm3 Absolute Nucleated RBC 0.000 (0.0-0.012) K/mm3 Nucleated RBC % 0.0 (0.0-0.2) % Sodium 137 (137-145) mmol/L Potassium 3.7 (3.4-5.0) mmol/L Chloride 104 (98-107) mmol/L Carbon Dioxide 25 (22-30) mmol/L Anion Gap 8 (4-12) mmol/L BUN 6 L D (7-17) mg/dL Creatinine 0.66 L (0.7-1.0) mg/dL Estim Creat Clear Calc 120 ml/min Estimated GFR > 60 (59 - ) Glucose 105 (65-110) mg/dL Calcium 8.9 (8.4-10.2) mg/dL Total Bilirubin 1.0 (0.2-1.3) mg/dL AST 910 H (14-36) U/L ALT 450 H (6-35) U/L Alkaline Phosphatase 101 (38-126) U/L Total Protein 8.0 (6.3-8.2) g/dL Albumin 4.2 (3.5-5.1) g/dL Lipase 109 (23-300) U/L Urine Color Yellow (Yellow) Urine Appearance Cloudy H (Clear) Urine pH 6.5 (5.0-9.0) Ur Specific [place] 1.012 (1.001-1.035) Urine Protein Negative (Negative) mg/dL Urine Glucose (UA) Negative (Negative) mg/dL Urine Ketones Negative (Negative) mg/dL Ur Blood (Man) 2+ H (Negative) Urine Nitrate Negative (Negative) Urine Bilirubin Negative (Negative) Urine Urobilinogen 4.0 H (<2.0) mg/dL Leukocyte Esterase Rfl Trace H (Negative) TIA/UL Urine RBC 0-2 (0-2) /hpf Urine WBC 0-5 (0-3) /hpf Ur Squamous Epith Cells Moderate (Few) /hpf Urine Bacteria 1+ H /hpf Urine Casts 0-2 POC Urine HCG, Qual Negative (Negative) Imaging Data Radiologist's impression: ITS Impressions Upper Quadrant Ultrasound 02/19/25 10:47 IMPRESSION: 1. Cholelithiasis with no findings of acute cholecystitis and no intra or extra hepatic biliary ductal dilation. Discharge Plan Discharge Clinical Impression: Cholelithiasis, Transaminitis Patient Disposition: Still a Patient Condition: Stable
--- NOTE | 2025-02-19 12:57 | PM.IMHP ---
H&P: HPI History of Present Illness Date/Time: 02/19/25 12:57 Chief Complaint: Abdominal Pain Narrative: 39 y/o F with no significant PMH presents here with abdominal pain. The patient presents here on 02/19 from home for further evaluation of abdominal pain. She reports onset at the end of March last year. Pain since then has been intermittent, epigastric/right-sided, radiation into her back (mid back), worsens with eating/sugary foods, and alleviated partially with heat. She reports accompanying nausea and vomiting. She denies fever, chills, or diarrhea. Denies any previous history of abdominal surgeries or gallstones. Initial VS at presentation: 98.1? F, HR 70, R 18, 131/81, and 99% on RA. ED workup showed: WBC 4.4, no anemia, no significant electrolyte derangements, creatinine 0.66 and GFR >60 about, AST 910, 8 ALT 450, lipase within normal limits. UA equivocal for UTI as it has moderate epithelial cells. Right upper quadrant ultrasound showed cholelithiasis with no findings of acute cholecystitis in no intra or extrahepatic biliary ductal dilation. Review of Systems Review of Systems: All systems reviewed & are unremarkable except as noted in HPI and below PMFSH Past Medical History Medical History Healthy female adult Surgical History Surgical History No history of previous surgery Social History Social History Smoking status: Never smoker Substance use: never Lack of Transportation: No Lack of Food: Never True Current Housing: I Have Housing Concerned About Future Housing: No Difficulty Paying Gas/Electric Bills: No Difficulty Paying for Meds: No Currently Unemployed: No Education: High School Diploma/GED Difficulty w/ Childcare or Family Care: No Spiritual care concerns: No Meds Home Medications and Allergies Home Medications ?Medication ?Instructions ?Recorded ?Confirmed ?Type No Home Medications 02/19/25 02/19/25 History Allergies Allergy/AdvReac Type Severity Reaction Status Date / Time No Known Allergies Allergy Verified 02/19/25 07:06 Vital Signs Vital Signs - 24 hr 02/19/25 07:08 02/19/25 11:30 Temperature 98.1 F Pulse Rate 70 80 Respiratory Rate 18 20 Blood Pressure 131/81 125/72 Pulse Oximetry 99 98 Exam Const: General: comfortable and no acute distress Other: , female, nontoxic appearance HENMT: Face/Nose/Sinus: Normal nares present Mouth: Yes moist mucous membranes Eyes: General: appearance normal, both eyes and all related structures Sclera: sclerae normal Pupils: Equal, round and reactive pupils present EOM: EOMs intact bilaterally Resp: Effort & Inspection: normal respiratory effort Auscultation: clear to auscultation bilaterally Cardio: Rate: regular rate Rhythm: regular rhythm Other: S1-S2 present without murmur, rub, ectopy GI: Other: Abdomen soft, nondistended, nontender. Normoactive bowel sounds in all quadrants. Skin: General skin exam: normal color and no rashes or lesions noted Wounds: no wounds Neuro: Speech: normal speech Motor exam (neuro): 5/5 motor strength present throughout Sensory Exam: normal sensation Other: A&O x4 Extrem: General: normal to inspection Psych: Mental Status: mental status grossly normal Affect: normal affect Other: Good insight and judgment, pleasant H&P: Results Labs Labs: Short CBC 02/19/25 Range/Units 07:42 WBC 4.4 L (4.5-10.0) K/mm3 Hgb 12.7 (12.0-15.0) g/dL Hct 39.5 (37.0-47.0) % Plt Count 262 (150-375) k/mm3 BMP 02/19/25 07:42 Sodium 137 Potassium 3.7 Chloride 104 Carbon Dioxide 25 BUN 6 L D Creatinine 0.66 L Glucose 105 Calcium 8.9 Liver Function 02/19/25 Range/Units 07:42 Total Bilirubin 1.0 (0.2-1.3) mg/dL AST 910 H (14-36) U/L ALT 450 H (6-35) U/L Alkaline Phosphatase 101 (38-126) U/L Albumin 4.2 (3.5-5.1) g/dL Urine 02/19/25 Range/Units 07:42 Urine Color Yellow (Yellow) Urine Appearance Cloudy H (Clear) Urine pH 6.5 (5.0-9.0) Ur Specific [place] 1.012 (1.001-1.035) Urine Protein Negative (Negative) mg/dL Urine Glucose (UA) Negative (Negative) mg/dL Assessment and Plan Assessment and plan (1) Cholelithiasis: Code(s): K80.20 - Calculus of gallbladder without cholecystitis without obstruction Status: Acute Assessment and Plan: The patient presents here with intermittent epigastric/right upper quadrant pain that has been ongoing since 2023. No prior history of cholelithiasis or abdominal surgeries? Right upper quadrant ultrasound showing cholelithiasis without findings for acute cholecystitis. Patient to be admitted for MRCP. He in general surgery and GI consulted. Transaminitis noted, suspected to be secondary to cholelithiasis. - general surgery consulted, see note - GI consulted, see note - MRCP - analgesics p.r.n.: Tylenol, [place], morphine - IV fluids: NS 125 mL/hour - trend WBC, LFTs, renal function (2) Transaminitis: Code(s): R74.01 - Elevation of levels of liver transaminase levels Status: Acute Assessment and Plan: AST 910 and ALT 450. Total bilirubin, alk-phos, and lipase within normal limits upon admission. Suspected to be secondary to cholelithiasis, see above. - trend LFTs - IV fluids Plan Diet: clear liquids GI Prophylaxis: n/a DVT Prophylaxis: SCDs IV fluids: NS 125 mL/hr Lines/Tubes: Peripheral IV Code Status: Full code Quality VTE Prophylaxis VTE prophylaxis: mechanical ordered Hospitalist MIPS Advance Care Plan I have confirmed that the patient's Advanced Care Plan is present, code status is documented, or surrogate decision maker is listed in patient medical record.: Yes Medication Reconciliation I have utilized all available resources to obtain, update and review the patients current medications (includes all prescriptions, OTC, herbals, cannabis, and nutritional supplements).: Yes
[2025-02-19 13:15] VITALS: BP 132/91; PULSE 96; RESP 20; O2SAT 96
--- NOTE | 2025-02-19 13:40 | ADMGEN ---
This patient, Sherrill Wong, was admitted to 3 Med Surg Room 310-01. Patient/family oriented to hospital policies and general routines including ID bracelet, bed and alarms, visiting hours, pain management, procedures, bathroom and other care routines, personal items, smoking policy, room service/diet, and visiting hours. Information on how to activate the Rapid Response Team has been discussed. Patient/Family are encouraged to report perceived risks to care and to ask questions if they do not understand what they are told or what they should do.
[2025-02-19 14:08] VITALS: BP 125/75; PULSE 49; RESP 16; TEMP 36.9; O2SAT 98
[2025-02-19] MEDS: SODIUM CHLORIDE 0.9% IV 1,000 ML 125 ML IV CONT ×2 (15:00→22:48)
--- NOTE | 2025-02-19 15:26 | P.CONGS_ITS ---
Assessment and Plan Assessment and plan (1) Cholelithiasis: Code(s): K80.20 - Calculus of gallbladder without cholecystitis without obstruction Status: Acute Assessment and Plan: * Patient presents with epigastric abdominal pain, which has resolved. She has been having intermittent episodes of epigastric abdominal pain for the past year. RUQ US showed cholelithiasis with an otherwise normal gallbladder. WBC count normal. AST and ALT were elevated, but her bilirubin is normal. MRCP ordered and GI has been consulted. Will continue to follow along while undergoing further workup. (2) Epigastric pain: Code(s): R10.13 - Epigastric pain Status: Acute Assessment and Plan: * Her epigastric pain could be related to multiple etiologies. Will need further workup to determine the cause of her symptoms. Discussed with her that we may need to consider a laparoscopic cholecystectomy if this appears to be related to her gallbladder, but will await MRCP results and GI evaluation. (3) Transaminitis: Code(s): R74.01 - Elevation of levels of liver transaminase levels Status: Acute Assessment and Plan: * Repeat labs tomorrow. Plan I have discussed the patient's case and plan of care with Dr. Moreno. History of Present Illness Consult details Consult date: 02/19/25 Reason for consult: other (Cholelithiasis, elevated LFTs) Requesting physician: Danette Mccrary APRN Narrative: This is a 39-year-old female with no previous medical history, who we have been asked to see in surgical consultation for cholelithiasis, elevated LFTs. She has been having intermittent episodes of epigastric abdominal pain for the past year. She believes this happens after eating foods that are high in sugar. She cannot give a frequency for how often this happens, but states it just depends on what she eats. She has never had any associated symptoms up until last week, she developed nausea with 1 of her episodes of pain. Last night, she ate a freezer meal and went to bed feeling normal. She woke up around 2:00 a.m. with a sudden onset of epigastric abdominal pain. This felt similar to her previous episodes, but it concerned her that it occurred in the middle of the night and she came into the ED for evaluation. Labs showed a white blood cell count 4400, total bilirubin 1.0, AST 19, ALT 450, other labs unremarkable. Right upper quadrant abdominal ultrasound showed cholelithiasis with no findings of acute cholecystitis and no intra or extrahepatic biliary ductal dilation. She was admitted to the hospitalist service. GI was consulted and she has an MRCP ordered. She is now seen on the medical floor. Her abdominal pain has resolved. She denies any nausea at this time. She denies previous abdominal surgeries. Review of Systems 2 Review of Systems: All systems reviewed & are unremarkable except as noted in HPI and below PMFSH Past Medical History Medical History Healthy female adult Surgical History Surgical History No history of previous surgery Social History Social History Substance use: never Lack of Transportation: No Lack of Food: Never True Current Housing: I Have Housing Concerned About Future Housing: No Difficulty Paying Gas/Electric Bills: No Difficulty Paying for Meds: No Currently Unemployed: No Education: High School Diploma/GED Difficulty w/ Childcare or Family Care: No Spiritual care concerns: No Meds Home Medications and Allergies Allergies Allergy/AdvReac Type Severity Reaction Status Date / Time No Known Allergies Allergy Verified 02/19/25 07:06 Vital Signs Vital Signs - 24 hr 02/19/25 07:08 02/19/25 11:30 02/19/25 13:15 Temperature 98.1 F Pulse Rate 70 80 96 Respiratory Rate 18 20 20 Blood Pressure 131/81 125/72 132/91 H Pulse Oximetry 99 98 96 Exam 2 Const: General: comfortable and no acute distress Nutritional Appearance: a verage body habitus Orientation/consciousness: patient oriented x3 HENMT: Head: normocephalic and atraumatic Ears: hearing grossly normal bilaterally Mouth: Yes moist mucous membranes Eyes: General: appearance normal, both eyes and all related structures P upils: Equal, round and reactive pupils present Neck: Neck: normal visual inspection and full ROM Resp: Effort & Inspection: no respiratory distress Auscultation: clear to auscultation bilaterally Cardio: Rate: regular rate Rhythm: regular rhythm Peripheral pulses: P eripheral pulses 2+ throughout GI: Inspection: non-distended, no scars and striae GI Palp: Yes Soft to palpation, Yes Tenderness to palpation present (GI) (very mild epigastric tenderness), No Guarding due to palpation present (GI), Yes No hepatosplenomegaly present, No Hernia present and No Rebound tenderness present Percussion: Yes normal to percussion Auscultation: normal bowel sounds Skin: General skin exam: normal color Neuro: General: moves all extremities and no focal motor deficits Speech: n ormal speech Motor exam (neuro): 5/5 motor strength present throughout Extrem: General: normal to inspection and no edema Psych: Mental Status: mental status grossly normal Attitude: cooperative Insight: Good insight present (Psych) Judgement: Good judgement present (Psych) Results Labs 02/19/25 07:42 02/19/25 07:42 Labs: Abnormal lab results 02/19/25 Range/Units 07:42 WBC 4.4 L (4.5-10.0) K/mm3 MPV 10.9 H (7.4-10.4) fl BUN 6 L D (7-17) mg/dL Creatinine 0.66 L (0.7-1.0) mg/dL AST 910 H (14-36) U/L ALT 450 H (6-35) U/L Urine Appearance Cloudy H (Clear) Ur Blood (Man) 2+ H (Negative) Urine Urobilinogen 4.0 H (<2.0) mg/dL Leukocyte Esterase Rfl Trace H (Negative) TIA/UL Urine Bacteria 1+ H /hpf Diabetes panel 02/19/25 Range/Units 07:42 Sodium 137 (137-145) mmol/L Potassium 3.7 (3.4-5.0) mmol/L Chloride 104 (98-107) mmol/L Carbon Dioxide 25 (22-30) mmol/L BUN 6 L D (7-17) mg/dL Creatinine 0.66 L (0.7-1.0) mg/dL Glucose 105 (65-110) mg/dL Calcium 8.9 (8.4-10.2) mg/dL AST 910 H (14-36) U/L ALT 450 H (6-35) U/L Alkaline Phosphatase 101 (38-126) U/L Total Protein 8.0 (6.3-8.2) g/dL Albumin 4.2 (3.5-5.1) g/dL Calcium panel 02/19/25 Range/Units 07:42 Calcium 8.9 (8.4-10.2) mg/dL Albumin 4.2 (3.5-5.1) g/dL Pituitary panel 02/19/25 Range/Units 07:42 Sodium 137 (137-145) mmol/L Potassium 3.7 (3.4-5.0) mmol/L Chloride 104 (98-107) mmol/L Carbon Dioxide 25 (22-30) mmol/L BUN 6 L D (7-17) mg/dL Creatinine 0.66 L (0.7-1.0) mg/dL Glucose 105 (65-110) mg/dL Calcium 8.9 (8.4-10.2) mg/dL Adrenal panel 02/19/25 Range/Units 07:42 Sodium 137 (137-145) mmol/L Potassium 3.7 (3.4-5.0) mmol/L Chloride 104 (98-107) mmol/L Carbon Dioxide 25 (22-30) mmol/L BUN 6 L D (7-17) mg/dL Creatinine 0.66 L (0.7-1.0) mg/dL Glucose 105 (65-110) mg/dL Calcium 8.9 (8.4-10.2) mg/dL Total Bilirubin 1.0 (0.2-1.3) mg/dL AST 910 H (14-36) U/L ALT 450 H (6-35) U/L Alkaline Phosphatase 101 (38-126) U/L Total Protein 8.0 (6.3-8.2) g/dL Albumin 4.2 (3.5-5.1) g/dL All other labs normal. Imaging Additional studies: ITS Impressions Upper Quadrant Ultrasound 02/19/25 10:47 IMPRESSION: 1. Cholelithiasis with no findings of acute cholecystitis and no intra or extra hepatic biliary ductal dilation.
--- NOTE | 2025-02-19 15:38 | P.CONGI_ITS ---
Assessment and Plan Assessment and plan (1) Cholelithiasis: Code(s): K80.20 - Calculus of gallbladder without cholecystitis without obstruction Status: Acute Assessment and Plan: The patient presents with cholelithiasis and high-grade transaminate elevation, but she currently lacks clinical of jaundice or cholangitis. While a transient, passed CBD stone is the most likely cause of the enzyme elevation, an MRCP is requestedf to rule out a retained stone. This imaging result will determine the subsequent treatment: * If the CBD is clear : The patient should have a laparoscopic cholecystectomy. Given the chronicity of her recent clinical course, and the degree of transaminase elevation, this should ideally occur during the current admission. * If a retained CBD stone is found : will schedule pre lap jeffrey ERCP Surgical consultation has been placed for planning. GI Consult Note Consult date/time: 02/19/25 15:38 Reason for consult: Cholelithiasis-elevated transaminases HPI: Sherrill Wong is a 39 year old female who was admitted today with severe abdominal pain crisis, radiating to the back, exacerbated by fatty food. She endorses that 11 month history of intermittent pain of the same quality, sometimes very severe but always self-limited. On emergency room evaluation she was found to have cholelithiasis on ultrasound with no acute cholecystitis and a common bile duct measuring 3-4 mm with no evidence of intrahepatic biliary dilatation or retained stones. Laboratory data at admission showed: White count 4.4, hemoglobin 12.7, platelet count 262, INR 1.0, AST 910, ALT 450, bilirubin 1.0, alk-phos 101, albumin 4.2, lipase 109. she is currently asymptomatic. Review of Systems 2 Review of Systems: All systems reviewed & are unremarkable except as noted in HPI and below [facility] Past Medical History Medical History Healthy female adult Surgical History Surgical History No history of previous surgery Social History Social History Smoking status: Never smoker Substance use: never Lack of Transportation: No Lack of Food: Never True Current Housing: I Have Housing Concerned About Future Housing: No Difficulty Paying Gas/Electric Bills: No Difficulty Paying for Meds: No Currently Unemployed: No Education: High School Diploma/GED Difficulty w/ Childcare or Family Care: No Spiritual care concerns: No Meds Home Medications and Allergies Allergies Allergy/AdvReac Type Severity Reaction Status Date / Time No Known Allergies Allergy Verified 02/19/25 07:06 Vital Signs Vital Signs - 24 hr 02/19/25 07:08 02/19/25 11:30 02/19/25 13:15 Temperature 98.1 F Pulse Rate 70 80 96 Respiratory Rate 18 20 20 Blood Pressure 131/81 125/72 132/91 H Pulse Oximetry 99 98 96 Exam 2 Const: General: cooperative and healthy appearing Resp: Effort & Inspection: normal respiratory effort and able to speak in complete sentences Auscultation: clear to auscultation bilaterally Cardio: Rate: regular rate Rhythm: regular rhythm GI: Inspection: normal to inspection GI Palp: No No hepatosplenomegaly present Auscultation: normal bowel sounds Rectal Exam: deferred Skin: General skin exam: normal color Psych: Appearance: grossly normal Mental Status: mental status grossly normal Results Labs 02/19/25 07:42 02/19/25 07:42 Labs: Short CBC 02/19/25 Range/Units 07:42 WBC 4.4 L (4.5-10.0) K/mm3 Hgb 12.7 (12.0-15.0) g/dL Hct 39.5 (37.0-47.0) % Plt Count 262 (150-375) k/mm3 BMP 02/19/25 07:42 Sodium 137 Potassium 3.7 Chloride 104 Carbon Dioxide 25 BUN 6 L D Creatinine 0.66 L Glucose 105 Calcium 8.9 Liver Function 02/19/25 Range/Units 07:42 Total Bilirubin 1.0 (0.2-1.3) mg/dL AST 910 H (14-36) U/L ALT 450 H (6-35) U/L Alkaline Phosphatase 101 (38-126) U/L Albumin 4.2 (3.5-5.1) g/dL Urine 02/19/25 Range/Units 07:42 Urine Color Yellow (Yellow) Urine Appearance Cloudy H (Clear) Urine pH 6.5 (5.0-9.0) Ur Specific [place] 1.012 (1.001-1.035) Urine Protein Negative (Negative) mg/dL Urine Glucose (UA) Negative (Negative) mg/dL
[2025-02-19 20:11] VITALS: BP 116/67; PULSE 95; RESP 18; TEMP 36.6; O2SAT 97
[2025-02-19 20:29] VITALS: PULSE 60; RESP 20; O2SAT 99
[2025-02-19 21:10] VITALS: BMI 36.1
[2025-02-20 04:42] VITALS: BP 107/66; PULSE 68; RESP 14; TEMP 36.4; O2SAT 93
[2025-02-20 05:47] LABS: Hematocrit 36.2 % (37.0-47.0); Hemoglobin 11.7 g/dL (12.0-15.0); Immature Granulocyte Percent A 0.2 % (0-0.5); Lymphocytes Absolute Auto 1.80 K/mm3 (0.9-3.2); Mean Corpuscular HGB Conc 32.3 g/dl (32-36); Mean Corpuscular Hemoglobin 27.5 pg (26-34); Mean Corpuscular Volume 85.0 fl (80-100); Nucleated Red Blood Cells Absolute Auto 0.000 K/mm3 (0.0-0.012); Nucleated Red Blood Cells Perc 0.0 % (0.0-0.2); Platelet Count Result 226 k/mm3 (150-375); Red Blood Count 4.26 M/mm3 (4.2-5.4); White Blood Count 5.2 K/mm3 (4.5-10.0)
[2025-02-20 06:09] LABS: Alanine Aminotransferase 391 U/L (6-35); Albumin Level 3.5 g/dL (3.5-5.1); Alkaline Phosphatase 82 U/L (38-126); Anion Gap 6 mmol/L (4-12); Aspartate Amino Transferase 228 U/L (14-36); Bilirubin,Total 0.6 mg/dL (0.2-1.3); Blood Urea Nitrogen 3 mg/dL (7-17); Calcium 8.1 mg/dL (8.4-10.2); Carbon Dioxide 22 mmol/L (22-30); Chloride 109 mmol/L (98-107); Estimated CRCL calculation 120 ml/min; Estimated Glomerular Filt Rate > 60; Glucose 79 mg/dL (65-110); Potassium 3.4 mmol/L (3.4-5.0); Sodium 137 mmol/L (137-145); Total Protein 6.7 g/dL (6.3-8.2)
[2025-02-20] MEDS: SODIUM CHLORIDE 0.9% IV 1,000 ML 125 ML IV CONT (07:02)
--- NOTE | 2025-02-20 09:56 | P.PNGS_ITS ---
Progress Note: A&P Assessment and Plan (1) Cholelithiasis: Code(s): K80.20 - Calculus of gallbladder without cholecystitis without obstruction Status: Acute Assessment and Plan: likely c passed stone, will need interval cholecystectomy, long discussion with and patient and they would like to be discharged with plans for interval cholecystectomy as an outpatient in the next few weeks, will start low-fat diet and if tolerating okay to DC home (2) Transaminitis: Code(s): R74.01 - Elevation of levels of liver transaminase levels Status: Acute Assessment and Plan: see above, will set up for repeat labs in a few days Subjective Subjective Date/Time Seen: 02/20/25 09:56 Interval history: feels much better, no further pain, lori clears Review of Systems Review of Systems: All systems reviewed & are unremarkable except as noted in HPI and below Exam Const: General: cooperative, comfortable and no acute distress Resp: Auscultation: clear to auscultation bilaterally Cardio: Rate: regular rate Rhythm: regular rhythm GI: Inspection: normal to inspection GI Palp: No abdominal tenderness and Yes Soft to palpation Objective Data Vital Signs Vital Signs: Vital Signs - 24 hr 02/19/25 11:30 02/19/25 13:15 02/19/25 14:00 Temperature Pulse Rate 80 96 Respiratory Rate 20 20 Blood Pressure 125/72 132/91 H Pulse Oximetry 98 96 Oxygen Delivery Room Air Fraction of Inspired Oxygen 02/19/25 14:08 02/19/25 20:00 02/19/25 20:11 Temperature 36.9 C 36.6 C Pulse Rate 49 L 95 Respiratory Rate 16 18 Blood Pressure 125/75 116/67 Pulse Oximetry 98 97 Oxygen Delivery Room Air Fraction of Inspired Oxygen 02/19/25 20:29 02/20/25 04:42 Temperature 36.4 C Pulse Rate 60 68 Respiratory Rate 20 14 Blood Pressure 107/66 Pulse Oximetry 99 93 Oxygen Delivery Room Air Fraction of Inspired Oxygen 21 Intake/Output Intake/Output: Intake & Output 02/17/25 02/18/25 02/19/25 02/20/25 23:59 23:59 23:59 23:59 Intake Total 2197 1000 Balance 2197 1000 Meds/Results Medications: Active Medications Generic Name Dose Route Start Last Admin Trade Name Freq PRN Reason Stop Dose Admin Acetaminophen 650 mg 02/19/25 13:06 Acetaminophen 325 Mg Tablet PO Q4H PRN Mild Pain (1-3) or Fever Hydrocodone Bitart/Acetaminophen 1 tab 02/19/25 13:06 Hydrocodone/Acetaminophen (*Crx) 5-325 Mg Tablet PO Q4H PRN Moderate Pain (4-6) Docusate Sodium 100 mg 02/19/25 13:06 Docusate Sodium 100 Mg Capsule PO BID PRN Constipation Sodium Chloride 1,000 mls @ 125 mls/hr 02/19/25 12:55 02/20/25 07:02 Normal Saline Iv IV CONT 125 mls/hr .Q8H ANIL Administration Morphine Sulfate 4 mg 02/19/25 12:53 Morphine Sulfate (*Crx) 4 Mg/Ml Inj IV PUSH Q2H PRN Pain Rated 7-10 Ondansetron HCl 4 mg 02/19/25 12:53 Ondansetron Inj 4 Mg/2 Ml Vial IV PUSH Q4H PRN Nausea Radiology Results: ITS Impressions Upper Quadrant Ultrasound 02/19/25 10:47 IMPRESSION: 1. Cholelithiasis with no findings of acute cholecystitis and no intra or extra hepatic biliary ductal dilation. Labs Labs: Laboratory Results - last 24 hr 02/20/25 05:27 WBC 5.2 RBC 4.26 Hgb 11.7 L Hct 36.2 L MCV 85.0 MCH 27.5 MCHC 32.3 RDW 13.2 Plt Count 226 MPV 11.4 H Immature Gran % (Auto) 0.2 Neut % (Auto) 55.6 Lymph % (Auto) 34.4 [place] % (Auto) 7.1 Eos % (Auto) 2.1 Baso % (Auto) 0.6 Lymph # (Auto) 1.80 [place] # (Auto) 0.4 Eos # (Auto) 0.1 Baso # (Auto) 0.0 Abs Immat Gran (auto) 0.01 Absolute Neuts (auto) 2.9 Absolute Nucleated RBC 0.000 Nucleated RBC % 0.0 Sodium 137 Potassium 3.4 Chloride 109 H Carbon Dioxide 22 Anion Gap 6 BUN 3 L Creatinine 0.66 L Estim Creat Clear Calc 120 Estimated GFR > 60 Glucose 79 Calcium 8.1 L Total Bilirubin 0.6 AST 228 H ALT 391 H Alkaline Phosphatase 82 Total Protein 6.7 Albumin 3.5
--- NOTE | 2025-02-20 15:45 | P.DS_ITS ---
DS: Admitting Diagnosis Discharge Date 02/20/2025 Admitting Diagnosis Abdominal pain DS: Discharge Diagnosis Discharge Diagnosis (1) Cholelithiasis: Code(s): K80.20 - Calculus of gallbladder without cholecystitis without obstruction Status: Acute Assessment and Plan: Please refer to hospital course for brief summary The patient presents here with intermittent epigastric/right upper quadrant pain that has been ongoing since 2023. No prior history of cholelithiasis or abdominal surgeries? Right upper quadrant ultrasound showing cholelithiasis without findings for acute cholecystitis. Patient to be admitted for MRCP. He in general surgery and GI consulted. Transaminitis noted, suspected to be secondary to cholelithiasis. - general surgery consulted, see note - GI consulted, see note - MRCP - analgesics p.r.n.: Tylenol, [place], morphine - IV fluids: NS 125 mL/hour - trend WBC, LFTs, renal function (2) Transaminitis: Code(s): R74.01 - Elevation of levels of liver transaminase levels Status: Acute Assessment and Plan: AST 910 and ALT 450. Total bilirubin, alk-phos, and lipase within normal limits upon admission. Suspected to be secondary to cholelithiasis, see above. - trend LFTs - IV fluids DS: Summary Hospital Course Hospital Course: 39 y/o F with no significant PMH presents here with abdominal pain. The patient presents here on 02/19 from home for further evaluation of abdominal pain. She reports onset at the end of March last year. Pain since then has been intermittent, epigastric/right-sided, radiation into her back (mid back), worsens with eating/sugary foods, and alleviated partially with heat. She reports accompanying nausea and vomiting. She denies fever, chills, or diarrhea. Denies any previous history of abdominal surgeries or gallstones. Initial VS at presentation: 98.1? F, HR 70, R 18, 131/81, and 99% on RA. ED workup showed: WBC 4.4, no anemia, no significant electrolyte derangements, creatinine 0.66 and GFR >60 about, AST 910, 8 ALT 450, lipase within normal limits. UA equivocal for UTI as it has moderate epithelial cells. Right upper quadrant ultrasound showed cholelithiasis with no findings of acute cholecystitis in no intra or extrahepatic biliary ductal dilation. I assumed care 02/20/2025. Discussed with surgery team who planned to do laparoscopic cholecystectomy with possible IOC. Patient was also evaluated by GI who recommended MRCP but later he agrees with surgery team plan. Advised patient to seek emergency care if any concerning symptoms including abdominal pain. On the day of discharge, the patient was seen and examined. Vital signs were stable. Physical exam were stable and labs were reviewed at length. Discharge instructions, medications, and follow-up appointments were discussed with the patient at length and all day questions were answered. ER warnings were given. Status at Discharge Cognitive/behavioral status at discharge: Stable Time Spent with Patient Time attestation: Total time spent providing and/or coordinating discharge services: 45 minutes Exam Const: General: comfortable and no acute distress Other: , female, nontoxic appearance HENMT: Face/Nose/Sinus: Normal nares present Mouth: Yes moist mucous membranes Eyes: General: appearance normal, both eyes and all related structures Sclera: sclerae normal Pupils: Equal, round and reactive pupils present EOM: EOMs intact bilaterally Resp: Effort & Inspection: normal respiratory effort Auscultation: clear to auscultation bilaterally Cardio: Rate: regular rate Rhythm: regular rhythm Other: S1-S2 present without murmur, rub, ectopy GI: Other: Abdomen soft, nondistended, nontender. Normoactive bowel sounds in all quadrants. Skin: General skin exam: normal color and no rashes or lesions noted Wounds: no wounds Neuro: Cranial nerves: Yes Equal, round and reactive pupils present Speech: normal speech Motor exam (neuro): 5/5 motor strength present throughout Sensory Exam: normal sensation Other: A&O x4 Extrem: General: normal to inspection Psych: Mental Status: mental status grossly normal Affect: normal affect Other: Good insight and judgment, pleasant DS: Data Data Completed and Pending Labs on day of discharge: Labs from last 24 hours 02/20/25 05:27 WBC 5.2 RBC 4.26 Hgb 11.7 L Hct 36.2 L MCV 85.0 MCH 27.5 MCHC 32.3 RDW 13.2 Plt Count 226 MPV 11.4 H Immature Gran % (Auto) 0.2 Neut % (Auto) 55.6 Lymph % (Auto) 34.4 [place] % (Auto) 7.1 Eos % (Auto) 2.1 Baso % (Auto) 0.6 Lymph # (Auto) 1.80 [place] # (Auto) 0.4 Eos # (Auto) 0.1 Baso # (Auto) 0.0 Abs Immat Gran (auto) 0.01 Absolute Neuts (auto) 2.9 Absolute Nucleated RBC 0.000 Nucleated RBC % 0.0 Sodium 137 Potassium 3.4 Chloride 109 H Carbon Dioxide 22 Anion Gap 6 BUN 3 L Creatinine 0.66 L Estim Creat Clear Calc 120 Estimated GFR > 60 Glucose 79 Calcium 8.1 L Total Bilirubin 0.6 AST 228 H ALT 391 H Alkaline Phosphatase 82 Total Protein 6.7 Albumin 3.5 Discharge Plan Discharge Attending physician on discharge: Khanh Jimenez Consulting providers: Sarah Moreno Discharging Clinician: Khanh Jimenez Anticipated Discharge Date/Time: 02/20/25 15:41 Patient Disposition: Home Activity: as tolerated Diet: low fat Discharge Instructions: Maintain a strict low fat diet until surgery on . Be expecting a phone call from preop testing regarding time of surgery and any other requirements. If you develop any new increased pain, nausea/vomiting, or any other symptoms please call our office at or present to the emergency department. Call office with any questions. Take Tylenol and ibuprofen if pain recurrs. If you have any concerning symptoms including pain, nausea or vomiting please return to ED Avoid NSAIDs (ibuprofen, naproxen, Aleve). Tylenol is safe to take. Follow-up with your primary care provider in 1-2 weeks. Please call for appointment. Follow-up with surgery within week upon discharge. Please call for an appointment. Thank you for using [facility] for your health care needs. Patient Instructions: Antibiotic Form, Low Fat Diet (DC) Patient Language: Korean Stand Alone Forms: General Discharge Information Follow-up/Referrals: Sarah Moreno MD [Physician, General Surgery] - 1 Week Yao Bullock MD [Physician, Gastroenterology] Discharge Medications: New docusate sodium 100 mg Capsule 100 mg PO BID PRN (Reason: Constipation) Qty: 10 0RF Date of admission: 02/19/25 12:54 Primary Care Provider: UNKNOWN,DOCTOR Admitting Provider: Brittany Vigil Attending physician on admission: Brittany Vigil Condition: Stable
== END 2025-02-20 16:29 | disposition home or self-care (01) ==
LOC: ANHED 08:53 → ANH3MEDSUR 13:43
PROVIDERS: Student in an Organized Health Care Education/Training Program; Admitting Provider Internal Medicine; Emergency Provider Emergency Medicine; Visit Provider General Practice
DX: K80.20 Calculus of gallbladder without cholecystitis without obstruction (principal); R74.01 Elevation of levels of liver transaminase levels
CPT/HCPCS: 36415; 76705; 80053; 81001; 81025; 83690; 85025; 99285; G0378; J7030

== ENCOUNTER 2025-03-01 01:54 | Emergency (ER) | payer BC, SELFPAY ==
--- NOTE | ~2025-03-01 | CT_ITS ---
EXAMINATION: CT abdomen pelvis w con DATE: 03/01/2025 05:55 INDICATION: Right upper quadrant abdominal pain. TECHNIQUE: Computed tomography (CT) of the abdomen and pelvis was performed with 100 mL Omnipaque 350 intravenous contrast. Automated exposure control and iterative reconstruction technique were employed. The dose-length product was 1026.44 mGy-cm. COMPARISON: Ultrasound 02/19/2025 FINDINGS: The visualized portions of lung bases demonstrate mild atelectasis. No pleural effusion. The heart size is normal. No pericardial effusion. There is a small sliding hiatal hernia. There are cysts in the liver measuring up to 9 mm. The gallbladder is normal in size contains gallstones. Gallbladder wall thickening is noted. The spleen, pancreas, adrenal glands, and kidneys are normal. There are no dilated loops of bowel. The appendix is normal. There are no pathologically enlarged lymph nodes. There is physiologic fluid in the pelvis. The bones are unremarkable. IMPRESSION: 1. Cholelithiasis. Gallbladder wall thickening may be secondary to chronic cholecystitis. 2. Small sliding hiatal hernia. Reviewed, dictated and finalized at location E. IMPRESSION: 1. Cholelithiasis. Gallbladder wall thickening may be secondary to chronic chol ecystitis. 2. Small sliding hiatal hernia.
[2025-03-01 01:55] VITALS: BP 134/94; PULSE 68; RESP 16; TEMP 36.4; O2SAT 100
[2025-03-01 03:52] LABS: Hematocrit 38.7 % (37.0-47.0); Hemoglobin 12.4 g/dL (12.0-15.0); Immature Granulocyte Percent A 0.2 % (0-0.5); Lymphocytes Absolute Auto 1.15 K/mm3 (0.9-3.2); Mean Corpuscular HGB Conc 32.0 g/dl (32-36); Mean Corpuscular Hemoglobin 26.8 pg (26-34); Mean Corpuscular Volume 83.8 fl (80-100); Nucleated Red Blood Cells Absolute Auto 0.000 K/mm3 (0.0-0.012); Nucleated Red Blood Cells Perc 0.0 % (0.0-0.2); Platelet Count Result 254 k/mm3 (150-375); Red Blood Count 4.62 M/mm3 (4.2-5.4); White Blood Count 8.1 K/mm3 (4.5-10.0)
--- OUTSIDE RECORDS SUMMARY | 2025-03-01 03:53 | XMS_ITS | Clinical Summary ---
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 Name Role Phone Francisca Monsivais NP Primary [...] on file Legal Sex Female 7:[address] [employer] Gender Identity Not on file Sexual Orientation [...] patient's age to complete this topic Insurance Andera OOS Andera OOS Member Subscriber Plan / Payer (Ef fective 2022-Present) Name:Sherrill Valencia Relation to Subscriber:Self Name:Sherrill Valencia Payer ID:[id number] (NAIC) Type: ALLIANCE Address: [id number] [place] [id number] Care Teams [employer] 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
[2025-03-01 04:05] LABS: Alanine Aminotransferase 70 U/L (6-35); Albumin Level 4.1 g/dL (3.5-5.1); Alkaline Phosphatase 81 U/L (38-126); Anion Gap 7 mmol/L (4-12); Aspartate Amino Transferase 85 U/L (14-36); Bilirubin,Total 0.4 mg/dL (0.2-1.3); Blood Urea Nitrogen 3 mg/dL (7-17); Calcium 8.7 mg/dL (8.4-10.2); Carbon Dioxide 24 mmol/L (22-30); Chloride 105 mmol/L (98-107); Estimated CRCL calculation 133 ml/min; Estimated Glomerular Filt Rate > 60; Glucose 110 mg/dL (65-110); Lipase 53 U/L (23-300); Potassium 3.6 mmol/L (3.4-5.0); Sodium 136 mmol/L (137-145); Total Protein 7.9 g/dL (6.3-8.2)
[2025-03-01] MEDS: ONDANSETRON INJ 4 MG/2 ML VIAL IV PUSH (04:15)
[2025-03-01] MEDS: SODIUM CHLORIDE 0.9% IV 1,000 ML 999 ML IV CONT (04:15)
[2025-03-01] MEDS: MORPHINE SULFATE (*CRX) 4 MG/ML INJ IV PUSH (04:15)
--- NOTE | 2025-03-01 04:17 | ED_ITS ---
HPI - General Adult General Chief complaint: Abdominal Pain <Johnathan Toribio MD - Last Filed: 03/01/25 04:18> Stated complaint: gall bladder issues <Johnathan Toribio MD - Last Filed: 03/01/25 04:18> Time Seen by Provider: 03/01/25 03:41 <Johnathan Toribio MD - Last Filed: 03/01/25 04:18> History of Present Illness HPI narrative: Patient 39-year-old female who presents emergency department with chief complaint of right-sided abdominal pain. Patient reports she has had problems of gallstones for in the past still has her gallbladder patient states that pain radiates to back reports that is not improved by anything <Johnathan Toribio MD - Last Filed: 03/01/25 04:18> Related Data Allergies/adverse reactions: Allergies Allergy/AdvReac Type Severity Reaction Status Date / Time No Known Allergies Allergy Verified 02/20/25 15:40 <Johnathan Toribio MD - Last Filed: 03/01/25 04:18> Review of Systems 2 Review of Systems: A 10 system review of systems was completed on the patient and is negative except for what is stated in the HPI. Nursing and ancillary documentation was reviewed. <Johnathan Toribio MD - Last Filed: 03/01/25 04:18> PMF Past Medical History Medical History: Medical History Healthy female adult <Johnathan Toribio MD - Last Filed: 03/01/25 04:18> Surgical History Surgical History: Surgical History No history of previous surgery <Johnathan Toribio MD - Last Filed: 03/01/25 04:18> Social History Social History: Social History Smoking status: Never smoker Substance use: never Lack of Transportation: No Lack of Food: Never True Current Housing: I Have Housing Concerned About Future Housing: No Difficulty Paying Gas/Electric Bills: No Difficulty Paying for Meds: No Currently Unemployed: No Education: High School Diploma/GED Difficulty w/ Childcare or Family Care: No Living arrangements: with family Spiritual care concerns: No <Johnathan Toribio MD - Last Filed: 03/01/25 04:18> Exam 2 Narrative: GENERAL: Well-appearing, well-nourished, and in no acute distress. HEAD: Normocephalic, atraumatic. EYES: PERRLA and EOMI. ENT: Nares clear, no rhinorrhea or epistaxis. Mucous membranes moist. NECK: Supple. CHEST: Clear to auscultation. No respiratory distress. HEART: Regular rate and rhythm. No murmur heard. Normal peripheral pulses. ABDOMEN: Soft, nontender, nondistended, normal active bowel sounds. EXTREMITIES: Normal range of motion. No edema. SKIN: Warm, dry, no rash. NEURO: No focal deficits. Alert and oriented x3. PSYCH: Normal mood and affect. <Johnathan Toribio MD - Last Filed: 03/01/25 04:18> Course Course Emergency Course: 06:00 - This patient was signed out to me by previous ED physician, Dr. Toribio pending CT. 08:30 - CT abdomen pelvis demonstrates cholelithiasis with changes consistent with chronic cholecystitis without acute changes. Chemistries demonstrate mild AST/ALT elevations of 83 and 70 respectively with a normal total bilirubin and normal lipase. On re-evaluation, the patient states her pain is improved. CBC unremarkable. Urinalysis not concerning for UTI. Will discharge with pain medications and recommendation for General surgery follow-up. I discussed the findings and recommendations with the patient. Discussed return and emergency precautions including signs/symptoms of acute abdomen intractable vomiting. The patient voiced understanding and agreement with the plan. All questions answered to her satisfaction. <Fernando August MD - Last Filed: 03/01/25 09:09> Vital Signs Vital signs: Vital Signs Temperature 97.6 F 03/01/25 01:55 Pulse Rate 68 03/01/25 01:55 Respiratory Rate 16 03/01/25 01:55 Blood Pressure 134/94 H 03/01/25 01:55 Pulse Oximetry 100 03/01/25 01:55 Oxygen Delivery Room Air 03/01/25 01:55 Temperature 97.6 F 03/01/25 01:55 Pulse Rate 72 03/01/25 06:32 Respiratory Rate 18 03/01/25 06:32 Blood Pressure 129/87 03/01/25 06:32 Pulse Oximetry 100 03/01/25 06:32 Oxygen Delivery Room Air 03/01/25 01:55 <Johnathan Toribio MD - Last Filed: 03/01/25 04:18> Vital Signs Temperature 97.6 F 03/01/25 01:55 Pulse Rate 68 03/01/25 01:55 Respiratory Rate 16 03/01/25 01:55 Blood Pressure 134/94 H 03/01/25 01:55 Pulse Oximetry 100 03/01/25 01:55 Oxygen Delivery Room Air 03/01/25 01:55 Temperature 97.6 F 03/01/25 01:55 Pulse Rate 72 03/01/25 06:32 Respiratory Rate 18 03/01/25 06:32 Blood Pressure 129/87 03/01/25 06:32 Pulse Oximetry 100 03/01/25 06:32 Oxygen Delivery Room Air 03/01/25 01:55 <Fernando August MD - Last Filed: 03/01/25 09:09> Medical Decision Making Vital Signs Vital Signs: Vital Signs Temperature 97.6 F 03/01/25 01:55 Pulse Rate 68 03/01/25 01:55 Respiratory Rate 16 03/01/25 01:55 Blood Pressure 134/94 H 03/01/25 01:55 Pulse Oximetry 100 03/01/25 01:55 Oxygen Delivery Room Air 03/01/25 01:55 Temperature 97.6 F 03/01/25 01:55 Pulse Rate 72 03/01/25 06:32 Respiratory Rate 18 03/01/25 06:32 Blood Pressure 129/87 03/01/25 06:32 Pulse Oximetry 100 03/01/25 06:32 Oxygen Delivery Room Air 03/01/25 01:55 <Johnathan Toribio MD - Last Filed: 03/01/25 04:18> Vital Signs Temperature 97.6 F 03/01/25 01:55 Pulse Rate 68 03/01/25 01:55 Respiratory Rate 16 03/01/25 01:55 Blood Pressure 134/94 H 03/01/25 01:55 Pulse Oximetry 100 03/01/25 01:55 Oxygen Delivery Room Air 03/01/25 01:55 Temperature 97.6 F 03/01/25 01:55 Pulse Rate 72 03/01/25 06:32 Respiratory Rate 18 03/01/25 06:32 Blood Pressure 129/87 03/01/25 06:32 Pulse Oximetry 100 03/01/25 06:32 Oxygen Delivery Room Air 03/01/25 01:55 <Fernando August MD - Last Filed: 03/01/25 09:09> Lab Data Result diagrams: 03/01/25 03:47 03/01/25 03:47 <Johnathan Toribio MD - Last Filed: 03/01/25 04:18> Labs: Lab Results 03/01/25 03/01/25 03/01/25 Range/Units 03:47 04:40 04:44 WBC 8.1 (4.5-10.0) K/mm3 RBC 4.62 (4.2-5.4) M/mm3 Hgb 12.4 (12.0-15.0) g/dL Hct 38.7 (37.0-47.0) % MCV 83.8 (80-100) fl MCH 26.8 (26-34) pg MCHC 32.0 (32-36) g/dl RDW 13.3 (11.5-14.5) % Plt Count 254 (150-375) k/mm3 MPV 11.5 H (7.4-10.4) fl Immature Gran % (Auto) 0.2 (0-0.5) % Neut % (Auto) 80.8 H (45.5-73.1) % Lymph % (Auto) 14.2 L (18.3-44.2) % [place] % (Auto) 3.7 (2.6-8.5) % Eos % (Auto) 0.4 (0-4.4) % Baso % (Auto) 0.7 (0.2-1.2) % Lymph # (Auto) 1.15 (0.9-3.2) K/mm3 [place] # (Auto) 0.3 (0.1-0.6) K/mm3 Eos # (Auto) 0.0 (0-0.3) K/mm3 Baso # (Auto) 0.1 (0.0-0.1) K/mm3 Abs Immat Gran (auto) 0.02 (0.00-0.031) K/mm3 Absolute Neuts (auto) 6.5 (1.3-6.7) K/mm3 Absolute Nucleated RBC 0.000 (0.0-0.012) K/mm3 Nucleated RBC % 0.0 (0.0-0.2) % Sodium 136 L (137-145) mmol/L Potassium 3.6 (3.4-5.0) mmol/L Chloride 105 (98-107) mmol/L Carbon Dioxide 24 (22-30) mmol/L Anion Gap 7 (4-12) mmol/L BUN 3 L (7-17) mg/dL Creatinine 0.59 L (0.7-1.0) mg/dL Estim Creat Clear Calc 133 ml/min Estimated GFR > 60 (59 - ) Glucose 110 (65-110) mg/dL Calcium 8.7 (8.4-10.2) mg/dL Total Bilirubin 0.4 (0.2-1.3) mg/dL AST 85 H (14-36) U/L ALT 70 H (6-35) U/L Alkaline Phosphatase 81 (38-126) U/L Total Protein 7.9 (6.3-8.2) g/dL Albumin 4.1 (3.5-5.1) g/dL Lipase 53 (23-300) U/L Urine Color Yellow (Yellow) Urine Appearance Clear (Clear) Urine pH 7.0 (5.0-9.0) Ur Specific [place] 1.003 (1.001-1.035) Urine Protein Negative (Negative) mg/dL Urine Glucose (UA) Negative (Negative) mg/dL Urine Ketones Trace H (Negative) mg/dL Ur Blood (Man) Negative (Negative) Urine Nitrate Negative (Negative) Urine Bilirubin Negative (Negative) Urine Urobilinogen 0.2 (<2.0) mg/dL Add Ur Microanalysis Reviewed Leukocyte Esterase Rfl 1+ H (Negative) TIA/UL Urine RBC 0-2 (0-2) /hpf Urine WBC 0-5 (0-3) /hpf Ur Squamous Epith Cells Occasional (Few) /hpf Urine Bacteria None seen /hpf Urine Casts 0-2 POC Urine HCG, Qual Negative (Negative) <Johnathan Toribio MD - Last Filed: 03/01/25 04:18> Lab Results 03/01/25 03/01/25 03/01/25 Range/Units 03:47 04:40 04:44 WBC 8.1 (4.5-10.0) K/mm3 RBC 4.62 (4.2-5.4) M/mm3 Hgb 12.4 (12.0-15.0) g/dL Hct 38.7 (37.0-47.0) % MCV 83.8 (80-100) fl MCH 26.8 (26-34) pg MCHC 32.0 (32-36) g/dl RDW 13.3 (11.5-14.5) % Plt Count 254 (150-375) k/mm3 MPV 11.5 H (7.4-10.4) fl Immature Gran % (Auto) 0.2 (0-0.5) % Neut % (Auto) 80.8 H (45.5-73.1) % Lymph % (Auto) 14.2 L (18.3-44.2) % [place] % (Auto) 3.7 (2.6-8.5) % Eos % (Auto) 0.4 (0-4.4) % Baso % (Auto) 0.7 (0.2-1.2) % Lymph # (Auto) 1.15 (0.9-3.2) K/mm3 [place] # (Auto) 0.3 (0.1-0.6) K/mm3 Eos # (Auto) 0.0 (0-0.3) K/mm3 Baso # (Auto) 0.1 (0.0-0.1) K/mm3 Abs Immat Gran (auto) 0.02 (0.00-0.031) K/mm3 Absolute Neuts (auto) 6.5 (1.3-6.7) K/mm3 Absolute Nucleated RBC 0.000 (0.0-0.012) K/mm3 Nucleated RBC % 0.0 (0.0-0.2) % Sodium 136 L (137-145) mmol/L Potassium 3.6 (3.4-5.0) mmol/L Chloride 105 (98-107) mmol/L Carbon Dioxide 24 (22-30) mmol/L Anion Gap 7 (4-12) mmol/L BUN 3 L (7-17) mg/dL Creatinine 0.59 L (0.7-1.0) mg/dL Estim Creat Clear Calc 133 ml/min Estimated GFR > 60 (59 - ) Glucose 110 (65-110) mg/dL Calcium 8.7 (8.4-10.2) mg/dL Total Bilirubin 0.4 (0.2-1.3) mg/dL AST 85 H (14-36) U/L ALT 70 H (6-35) U/L Alkaline Phosphatase 81 (38-126) U/L Total Protein 7.9 (6.3-8.2) g/dL Albumin 4.1 (3.5-5.1) g/dL Lipase 53 (23-300) U/L Urine Color Yellow (Yellow) Urine Appearance Clear (Clear) Urine pH 7.0 (5.0-9.0) Ur Specific [place] 1.003 (1.001-1.035) Urine Protein Negative (Negative) mg/dL Urine Glucose (UA) Negative (Negative) mg/dL Urine Ketones Trace H (Negative) mg/dL Ur Blood (Man) Negative (Negative) Urine Nitrate Negative (Negative) Urine Bilirubin Negative (Negative) Urine Urobilinogen 0.2 (<2.0) mg/dL Add Ur Microanalysis Reviewed Leukocyte Esterase Rfl 1+ H (Negative) TIA/UL Urine RBC 0-2 (0-2) /hpf Urine WBC 0-5 (0-3) /hpf Ur Squamous Epith Cells Occasional (Few) /hpf Urine Bacteria None seen /hpf Urine Casts 0-2 POC Urine HCG, Qual Negative (Negative) <Fernando August MD - Last Filed: 03/01/25 09:09> Discharge Plan Discharge Clinical Impression: Right upper quadrant abdominal pain Cholelithiasis Qualifiers: Cholelithiasis location: gallbladder Cholecystitis presence: without cholecystitis Biliary obstruction: without biliary obstruction Qualified Code(s): K80.20 - Calculus of gallbladder without cholecystitis without obstruction <Johnathan Toribio MD - Last Filed: 03/01/25 04:18> Patient Disposition: Home <Johnathan Toribio MD - Last Filed: 03/01/25 04:18> Condition: Stable <Johnathan Toribio MD - Last Filed: 03/01/25 04:18> Instructions: Antibiotic Form, Gallstones (ED) <Johnathan Toribio MD - Last Filed: 03/01/25 04:18> Additional Instructions: You were seen in the emergency department. CT scan of the abdomen showed chronic changes related to gallstones without changes concerning for acute infection. I recommend pain medications, nausea medications and follow-up with a surgeon to discuss potential gallbladder removal. If you develop severe abdominal pain, abdominal pain with fevers, persistent vomiting, or if you have other emergent concerns for life, limb, or eyesight, return to the emergency department. <Johnathan Toribio MD - Last Filed: 03/01/25 04:18> Patient Language: Serbian <Johnathan Toribio MD - Last Filed: 03/01/25 04:18> Prescriptions: New hydrocodone-acetaminophen 5-325 mg tablet 1 tablet PO Q8H PRN (Reason: pain) Qty: 12 0RF ondansetron 4 mg tablet,disintegrating 4 mg PO Q8H PRN (Reason: nausea and vomiting) Qty: 12 0RF No Action docusate sodium 100 mg Capsule 100 mg PO BID PRN (Reason: Constipation) Qty: 10 0RF <Johnathan Toribio MD - Last Filed: 03/01/25 04:18> Follow-up/Referrals: UNKNOWN,DOCTOR [Primary Care Provider] - 2 Weeks Gianluca Lowe MD [Physician, General Surgery] - 2 Weeks <Johnathan Toribio MD - Last Filed: 03/01/25 04:18> Time of Disposition: 08:30 <Johnathan Toribio MD - Last Filed: 03/01/25 04:18> 08:30 <Fernando August MD - Last Filed: 03/01/25 09:09> Sign Out Sign Out Data: Patient Sign Out occurred on 03/01/25 at 06:11. Patient's care was discussed, and care was transferred from Johnathan Toribio MD to Fernando August MD. <Johnathan Toribio MD - Last Filed: 03/01/25 04:18>
[2025-03-01 04:47] LABS: BEDSIDEPREGUCG Negative (Negative)
[2025-03-01 04:58] LABS: Add Urine Microscopic? YES; Appearance Urine Clear (Clear); Glucose Urine UA Negative (Negative); Leukocyte Esterase Ur 1+ LEU/UL (Negative); Need Manual Microscopic Reviewed; Nitrate Urine Negative (Negative); Non Pathogenic Casts 0-2; Specific Grav Ur 1.003 (1.001-1.035)
[2025-03-01 06:32] VITALS: BP 129/87; PULSE 72; RESP 18; O2SAT 100
[2025-03-01 09:27] VITALS: BP 142/88; PULSE 86; RESP 16; O2SAT 99
== END 2025-03-01 09:27 | disposition home or self-care (01) ==
PROVIDERS: Emergency Medicine; Emergency Provider Preventive Medicine Aerospace Medicine
DX: K80.20 Calculus of gallbladder without cholecystitis without obstruction (principal); K44.9 Diaphragmatic hernia without obstruction or gangrene
CPT/HCPCS: 36415; 74177; 80053; 81001; 81025; 83690; 85025; 87086; 96361; 96374; 96375; 99284; J2270; J2405; J7030; Q9967